=== PATIENT | female | born 1980 | race Two or more races ===

== ENCOUNTER 2024-10-02 10:06 | Outpatient (AMB) | payer OTHER, SELFPAY ==
--- NOTE | 2024-10-02 10:11 | MHC.PC.OV ---
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 Notably, she experienced a severe episode of chest pain and elevated blood pressure (216/131) in early August, leading to an ER visit where she was diagnosed with a mild form of pancreatitis based on blood work with elevated lipase. The episode was not accompanied by pain during or after meals or existence of gallstones. Since this major episode, she notes her blood pressure fluctuations correlate with activity and diet, particularly after consuming specific foods like fast food. The patient denies current chest pain, headaches, dizziness, or vision changes and reports sporadic feelings of heart racing without significant discomfort. Current lifestyle adjustments include home blood pressure monitoring and attention to dietary triggers. Social History - Nutrition: Reports preparing smoothies with fruits and vegetables, acknowledges past consumption of fast food like [employer] - Substance Use: Denies alcohol use related to discussed pancreatitis [facility] Medical History (Updated 10/02/24 @ 12:24 by Tatyana Uribe PA-C) Mammogram declined (~10/02/24) History of pancreatitis Cervical cancer screening Elevated blood pressure reading Sinus tachycardia Serum lipase elevation Establishing care with new doctor, encounter for Family History Father No problems noted. Mother No problems noted. Social History Housing: Apartment Alcohol intake: current Alcohol intake frequency: does not drink Patient Tobacco Use Status: Current everyday Tobacco user Tobacco use type: Cigarette Cigarettes Per Day: 10 service: No Current occupational status: employed Cognitive needs: No Hearing needs: No Vision needs: No Questionnaire PHQ-9 Over the last 2 weeks, how often have you been bothered by any of the following problems? 1. Little interest or pleasure in doing things: not at all 2. Feeling down, depressed, or hopeless: not at all 3. Trouble falling or staying asleep, or sleeping too much: not at all 4. Feeling tired or having little energy: not at all 5. Poor appetite or overeating: not at all 6. Feeling bad about yourself - or that you are a failure or have let yourself or your family down: not at all 7. Trouble concentrating on things, such as reading the newspaper or watching television: not at all 8. Moving or speaking so slowly that other people could have noticed. Or the opposite - being so fidgety or restless that you have been moving around a lot more than usual: not at all 9. Thoughts that you would be better off or of hurting yourself in some way: not at all Total score: 0 Depression Screening Interpretation: Negative Depression Screening Done: Yes 81463 - PHQ-9 Billing: Yes Source: Developed by Drs. Samy Rashid, Guadalupe Rubalcava, Charlie Moses and colleagues, with an educational mamta from [employer]. Thrive Questionnaire Date Thrive assessed: 10/02/24 I am a: Patient What is your living situation today?: I have a steady place to live Within the past 12 months, did the food you bought not last and you didn't have the money to get more?: Never true Within the past 12 months, did you worry whether your food would run out before you got money to buy more?: Never true Do you have trouble paying for medicines?: No Do you have trouble getting transportation to medical appointments?: No Do you have trouble paying your heating and electricity bill?: No Do you have trouble taking care of your child, family member or friend?: No Do you have trouble with day-to-day activities such as bathing, preparing meals, shopping, managing finances, etc.?: No Are you currently unemployed and looking for a job?: No Are you interested in more education?: No Please select the resources that you would like help with: None THRIVE Score: 0 AUDIT C Alcohol Use Questionnaire (AUDIT-C) 1. How often do you have a drink containing alcohol?: Never 3. How often do you have six or more drinks on one occasion?: Never Total Score: 0 Score Reviewed/Action Taken: No DAYANNA-7 AMB Questionnaire DAYANNA-7 Date DAYANNA - 7 assessed: 10/02/24 Feeling nervous, anxious, or on edge: 0 = Not at all Not being able to stop or control worryin = Not at all Worrying too much about different things: 0 = Not at all Trouble relaxin = Not at all Being so restless that it is hard to sit still: 0 = Not at all Becoming easily annoyed or irritable: 0 = Not at all Feeling afraid as if something awful might happen: 0 = Not at all Total DAYANNA-7 score (0-4 normal; 5-9 mild; 10-14 moderate; 15-21 severe): 0 Source: Developed by Drs. Samy Rashid, Guadalupe Rubalcava, Charlie Moses and colleagues, with an educational mamta from [employer]. DAYANNA-7 Assessment Billing DAYANNA-7 Assessment Tool: DAYANNA-7 Assessment 90206 Review of Systems Const Details: - Cardiovascular: Reports intermittent episodes of elevated blood pressure; Denies ongoing chest pain - Gastrointestinal: Denies nausea, vomiting, diarrhea; Reports transient abdominal discomfort likely related to dietary intake - Neurological: Denies headache, dizziness, or vision changes - General: Reports feeling off and heart racing intermittently Physical exam (Primary Care) Vital Signs: Last Vital Signs Temp 98.2 F 10/02/24 10:34 Pulse 70 10/02/24 10:34 Resp 14 10/02/24 10:34 BP 148/80 H 10/02/24 10:34 Pulse Ox 97 10/02/24 10:34 Oxygen Delivery Method Room Air 10/02/24 10:34 Care Plan Goal for BP management: <130/90 monitor her blood pressure for the next 2-4 weeks and bring blood pressure diary BMI result Body Mass Index 25.2 BMI Assessment/Plan discussion: High BMI High, discussed plan: lifestyle, weight reduction, dietary, physical activity and alcohol moderation Tobacco/Smoking Status: Tobacco use Status Tobacco use date assessed 10/02/24 10/02/24 10:14 Patient Tobacco Use Status Current everyday Tobacco 10/02/24 10:40 Tobacco use type Cigarette 10/02/24 10:40 PHQ-9: PHQ-9 Score PHQ-9: Total score 0 10/02/24 10:40 Depression Screening Interpretation: Negative Thrive Assessment: Date of Thrive Assessment Date Thrive assessed 10/02/24 10/02/24 10:14 Const Other: Appearance: Alert. Oriented X3. No acute distress. Head: Normal external exam. Normocephalic. Atraumatic. Eyes: Pupils are equal, round, and reactive to light. Extraocular movements intact. Conjunctiva and sclera normal. Eyelids normal. Ears: External auditory canal normal. Tympanic membranes normal. Throat: Pharynx normal. Uvula midline. Moist mucous membranes. Neck: Normal inspection. Neck supple. Full range of motion. No adenopathy. Thyroid Normal. No meningeal signs. No neck mass noted. Cardiovascular: Normal heart rate and rhythm. Heart sound normal. No murmurs noted. Pulses normal throughout. Respiratory: No respiratory distress. Painless inspiration. Breath sounds normal. No wheezes/rales/rhonchi noted. Chest nontender. No accessory muscle usage noted or decreased air movement noted. Abdomen: Soft and nontender. Back: Full range of motion noted. Skin: Skin warm and dry. Normal skin color. Normal skin turgor. No rashes/lesions/lacerations noted. Extremities: No lower extremity edema. Extremities exhibit normal range of motion. Extremities nontender. Neuro: Oriented X 3. No motor deficit. No sensory deficit. Reflexes normal. Results Reviewed Results Reviewed: ED At [place] on 08/30/24 - Labs: Lipase 117, White blood cells 11,000, with no anemia reported - Imaging: Negative CT and ultrasound for gallbladder issues; No abnormalities reported except noted elevated lipase Coding Level of Care Code New Pt Level 4 (93480) Complex EM visit Add On G2211 Diagnoses Establishing care with new doctor, encounter for Z76.89 Serum lipase elevation R74.8 Sinus tachycardia R00.0 History of pancreatitis Z87.19 Elevated blood pressure reading R03.0 Cervical cancer screening Z12.4 Additional Codes PHQ-9 - 89818 - PHQ-9 Billing: Yes ([id number]) DAYANNA-7 Assessment Billing - DAYANNA-7 Assessment Tool: DAYANNA-7 Assessment 93987 ([id number]) Assessment & Plan Assessment & Plan (1) Establishing care with new doctor, encounter for: Code(s): Z76.89 - Persons encountering health services in other specified circumstances Category: Medical (2) Serum lipase elevation: Code(s): R74.8 - Abnormal levels of other serum enzymes Category: Medical Plan: A historical episode that will be monitored through subsequent lipase level revaluation and careful attention to diet, with follow-up if symptoms recur or further dietary correlation is noted. (3) Sinus tachycardia: Code(s): R00.0 - Tachycardia, unspecified Category: Medical Plan: While current symptoms are absent, preparatory cardiac evaluation via stress test and echocardiogram is scheduled to exclude cardiac causes. Follow-up at the earliest available opportunity for test results will guide further management. (4) History of pancreatitis: Code(s): Z87.19 - Personal history of other diseases of the digestive system Category: Medical Plan: A historical episode that will be monitored through subsequent lipase level revaluation and careful attention to diet, with follow-up if symptoms recur or further dietary correlation is noted. (5) Elevated blood pressure reading: Code(s): R03.0 - Elevated blood-pressure reading, without diagnosis of hypertension Category: Medical Plan: The management includes home blood pressure monitoring and lifestyle adjustments, particularly around dietary intake and identifying triggers. The plan is to follow up in the office within two weeks, using logged data to guide future treatment decisions. (6) Cervical cancer screening: Code(s): Z12.4 - Encounter for screening for malignant neoplasm of cervix Category: Medical Plan: Will refer patient to qualified craft worker electrician for cervical cancer screening. Plan Plan Patient was informed and verbally consented to the use of an ambient scribe for clinic note documentation during this visit. 1. Essential Hypertension The management includes home blood pressure monitoring and lifestyle adjustments, particularly around dietary intake and identifying triggers. The plan is to follow up in the office within two weeks, using logged data to guide future treatment decisions. 2. Intermittent Chest Pain While current symptoms are absent, preparatory cardiac evaluation via stress test and echocardiogram is scheduled to exclude cardiac causes. Follow-up at the earliest available opportunity for test results will guide further management. 3. Episode Of Pancreatitis A historical episode that will be monitored through subsequent lipase level revaluation and careful attention to diet, with follow-up if symptoms recur or further dietary correlation is noted. Discussion Note During the visit, we discussed the likely diagnosis of essential hypertension given the elevated blood pressure episodes. After reviewing her symptoms and medical history, I recommended home monitoring of her blood pressure and instructed the patient on proper technique. We discussed the importance of recording the blood pressure daily in the morning before consuming any caffeine and evaluating these numbers over time to determine the need for medication management. I counseled her on potential trigger foods contributing to her symptoms and identified options for dietary modifications. Additionally, I have ordered further cardiac evaluation through stress testing and an echocardiogram to assess the potential cardiac origins of her past chest pain episodes to rule out specific conditions such as valve issues. Follow-up is planned within two weeks to reevaluate her blood pressure readings and review any test results that have been obtained by that time. Should any acute symptoms arise, especially chest pain, I instructed her to seek immediate medical attention. Additionally, we touched on the need for routine screenings she had not yet received, such as mammograms and other women?s health examinations, with referrals as needed. Orders: Orders CA echo transthoracic complete Today R00.0 - Tachycardia, unspecified, R03.0 - Elevated blood-pressure reading, without diagnosis of hypertension, R07.9 - Chest pain, unspecified Hemoglobin A1c Today Z00.00 - Encounter for general adult medical examination without abnormal findings TSH reflex Free T4 Today Z00.00 - Encounter for general adult medical examination without abnormal findings Vitamin B12 and Folate Today Z00.00 - Encounter for general adult medical examination without abnormal findings Vitamin D 25-OH Total Today Z00.00 - Encounter for general adult medical examination without abnormal findings Magnesium Today Z00.00 - Encounter for general adult medical examination without abnormal findings Liver Panel Today Z00.00 - Encounter for general adult medical examination without abnormal findings MM screening mammo BI Today Z12.31 - Encounter for screening mammogram for malignant neoplasm of breast CA stress test Today R00.0 - Tachycardia, unspecified, R03.0 - Elevated blood-pressure reading, without diagnosis of hypertension C Reactive Protein Today Z00.00 - Encounter for general adult medical examination without abnormal findings Complete Blood Count Auto Diff Today Z00.00 - Encounter for general adult medical examination without abnormal findings Comprehensive [place]. Panel Fast Today Z00.00 - Encounter for general adult medical examination without abnormal findings Erythrocyte Sedimentation Rate Today Z00.00 - Encounter for general adult medical examination without abnormal findings Lipid Panel Today Z00.00 - Encounter for general adult medical examination without abnormal findings Lipase Today R74.8 - Abnormal levels of other serum enzymes Referrals [facility] Referral Z12.4 - Encounter for screening for malignant neoplasm of cervix Patient Instructions: - Monitor blood pressure daily at home, particularly before caffeine intake. - Record at least 3-4 readings per week for review. - Follow up in two weeks for assessment of blood pressure logs. - Await scheduling of stress test and echocardiogram; call if not contacted in a month. - Avoid trigger foods that might contribute to elevated blood pressure. - Seek immediate care if recurrent or severe symptoms such as chest pain occur. - Attend recommended screenings and follow through with [facility] referrals. - Go fasting before blood work scheduled, avoiding eating 10 hours prior. - Contact us if any new or concerning symptoms develop or for clarification on instructions.
[2024-10-02 10:34] VITALS: BP 148/80; PULSE 70; RESP 14; TEMP 36.8; O2SAT 97; BMI 25.2
== END 2024-10-02 11:24 | disposition home or self-care (01) ==
LOC: HO.HMCSH 10:06
PROVIDERS: Visit Provider Physician Assistant Medical
DX: Z76.89 Persons encountering health services in other specified circumstances (principal); R74.8 Abnormal levels of other serum enzymes; R00.0 Tachycardia, unspecified; Z87.19 Personal history of other diseases of the digestive system; R03.0 Elevated blood-pressure reading, without diagnosis of hypertension; Z12.4 Encounter for screening for malignant neoplasm of cervix

== ENCOUNTER → 2024-10-02 10:06 | Outpatient (BNVA) | payer OTHER, SELFPAY | PROVIDERS: Visit Provider Physician Assistant Medical | DX: Z76.89 Persons encountering health services in other specified circumstances (principal); R74.8 Abnormal levels of other serum enzymes; R00.0 Tachycardia, unspecified; R03.0 Elevated blood-pressure reading, without diagnosis of hypertension; Z87.19 Personal history of other diseases of the digestive system | CPT/HCPCS: 96127; 99202 ==

== ENCOUNTER 2024-10-03 07:05 | Outpatient (REF) | payer OTHER, SELFPAY ==
[2024-10-03 07:21] LABS: MANUAL DIFF FLAG NO
[2024-10-03 08:42] LABS: Basophils Absolute Auto 0.1 X10*3/uL (0.0-0.2); Basophils Percent Auto 0.7 % (0-2); Eosinophils Absolute Auto 0.2 X10*3/uL (0.0-0.4); Eosinophils Percent Auto 0.9 % (0-4); Hematocrit 41.3 % (37.0-47.0); Hemoglobin 14.1 g/dl (12.0-16.0); Imm Gran Abs Auto 0.07 X10*3/uL (0.00-0.03); Imm Gran Pct Auto 0.4 % (0.0-0.4); Lymphocytes Absolute Auto 2.5 X10*3/uL (1.2-4.9); Lymphocytes Percent Auto 15.2 % (20-40); Mean Corpuscular HGB Conc 34.1 g/dl (31.0-35.0); Mean Corpuscular Hemoglobin 28.1 pg (27.0-33.0); Mean Corpuscular Volume 82.4 fL (80.0-98.0); Mean Platelet Volume 10.1 fL (9.4-12.3); Monocytes Absolute Auto 0.9 X10*3/uL (0.1-1.2); Monocytes Percent Auto 5.5 % (2-11); Neutrophils Absolute Auto 12.6 x10*3/uL (2.0-8.3); Neutrophils Percent Auto 77.3 % (45-73); Platelet Count 393 X10*3/uL (160-400); Red Blood Count 5.01 X10*6/uL (4.20-5.50); Red Cell Distribution Width 14.4 % (11.0-16.0); White Blood Count 16.4 X10*3/uL (4.8-10.8)
[2024-10-03 08:54] LABS: Estimated Average Glucose 111 mg/dL; Hemoglobin A1C 130.5774 umol/L; Hemoglobin A1c % 5.5 % (<6.0); Total Hemoglobin (HGBA1C) 3528.9468 umol/L
[2024-10-03 09:20] LABS: Alanine Aminotransferase 29 U/L (0-31); Albumin Level 4.4 g/dL (3.5-5.0); Alkaline Phosphatase 82 U/L (39-117); Anion Gap 13 (12-20); Aspartate Amino Transferase 22 U/L (5-31); Bilirubin Direct 0.3 mg/dL (0.0-0.5); Bilirubin Total 0.9 mg/dL (0.0-1.0); Blood Urea Nitrogen 8 mg/dL (9-16); C Reactive Protein 0.31 mg/dL (< or = 0.50); Calcium 9.1 mg/dL (8.4-10.2); Carbon Dioxide 26 mmol/L (22-29); Chloride 106 mmol/L (96-108); Cholesterol 169 mg/dL (<200); Estimated Glomerular Filt Rate > 60; Glucose Fasting 101 mg/dL (60-99); Lipase 17 U/L (8-78); Magnesium 1.9 mg/dL (1.6-2.6); Potassium 4.1 mmol/L (3.3-5.1); Sodium 141 mmol/L (135-145); Triglycerides 79 mg/dL (<150)
[2024-10-03 09:31] LABS: Erythrocyte Sedimentation Rate 2 MM/HR (0-20)
[2024-10-03 09:38] LABS: TSH reflex Free T4 1.22 uIU/mL (0.32-4.0); Vitamin D 25-OH Total 31.8 ng/mL (>30)
[2024-10-03 09:47] LABS: Folate 10.6 ng/mL (> or = 4.0); Vitamin B12 415 pg/mL (200-900)
[2024-10-03 10:03] LABS: HDL Cholesterol 45 mg/dL (>40); LDL Cholesterol Calculated 109 mg/dL (<100)
== END 2024-10-03 07:06 | disposition home or self-care (01) ==
LOC: HO.LAB 07:05
PROVIDERS: PCP Physician Assistant Medical; Visit Provider Physician Assistant Medical
DX: Z00.00 Encounter for general adult medical examination without abnormal findings (principal); R74.8 Abnormal levels of other serum enzymes
CPT/HCPCS: 36415; 80053; 80061; 80076; 82248; 82306; 82607; 82746; 83036; 83690; 83735; 84443; 85025; 85652; 86140

== ENCOUNTER 2024-10-20 11:49 | Outpatient (REF) | payer OTHER, SELFPAY ==
--- OUTSIDE RECORDS SUMMARY | 2024-10-20 11:51 | XMS_ITS | Clinical Summary ---
Author Organization [facility] Address [address] [place] [address] Phone Care Team Providers Care Time Checker Name Role Phone Nichole Petit MD Primary Care Provider [phone] Allergies No known active allergies Medications cyclobenzaprine (FLEXERIL) 10 mg tablet Take 1 tablet (10 mg total) by mouth 3 (three) times a day if needed for muscle spasms for up to 10 days. 15 tablet 08/31/2024 Active Encounters Date Type Department Care Team Description 08/30/2024 4:53 PM EDT - 08/31/2024 1:58 AM EDT Emergency [facility] Emergency [address] [place] [address] Velasquez Rosario, Isis Santacruz MD Chest pain, unspecified type (Primary Dx); Acute chest pain Discharge Disposition: Home or Self Care from Last 3 Months Social History Tobacco Use Types Packs/Day Years Used Date Smoking Tobacco: Never Assessed Comments Unknown Sex and Gender Information Value Date Recorded Sex Assigned at Female 08/30/2024 5:52 PM EDT Legal Sex Female 9:06 AM EST Gender Identity Female 08/30/2024 5:52 PM EDT Sexual Orientation Straight 08/30/2024 5: 52 PM EDT Obstetrics History Last Filed Vital Signs Vital Sign Reading Time Taken Comments Blood Pressure 133/87 08/31/2024 12:50 AM EDT Pulse 66 08/31/2024 12:50 AM EDT Temperature 36.8 ??C (98.2 ??F) 08/31/2024 12:50 AM E DT Respiratory Rate 15 08/31/2024 12:02 AM EDT Oxygen Saturation 98% 08/31/2024 12:50 AM EDT Inhaled Oxygen Concentration - - Weight 72.7 kg (160 lb 3.2 oz) 08/30/2024 4:39 P M EDT Height 170.2 cm (5' 7 ) 08/30/2024 4:39 PM EDT Body Mass Index 25.09 08/30/2024 4:39 PM EDT Plan of Treatment Health Maintenance Due Date Last Done Comments Breast Cancer Screening 1981 DTaP,Tdap,and Td Vaccines (1 - Tdap) 2000 Hepatitis B Vaccines (1 of 3 - 19+ 3-dose series) 2000 Cervical Cancer Screening: P ap Smear 2002 COVID-19 Vaccine ( - 2023-2 5 season) 2024 Depression Screening 08/31/2024 HIV Screening 08/31/2024 Hepatitis C Screening 08/31/2024 Social Influencers of Health Screening 08/31/2024 Influenza Vaccine (Season Ended) 2025 HIB Vaccines Aged Out No longer eligi ble based on patient's age to complete this topic HPV Vaccines Aged Out No longer eligi ble based on patient's age to complete this topic Hepatitis A Vaccines Aged Out No long er eligible based on patient's age to complete this topic IPV Vaccines Aged Out No longer eligi ble based on patient's age to complete this topic MMR Vaccines Aged Out No longer eligi ble based on patient's age to complete this topic Meningococcal ACWY Vaccine Aged Out N o longer eligible based on patient's age to complete this topic Meningococcal B Vaccine Aged Out No l onger eligible based on patient's age to complete this topic Pneumococcal Vaccine: Pediat rics (0 to 5 Years) and At-Risk Patients (6 to 64 Years) Aged Out No longer eligible b ased on patient's age to complete this topic RSV Immunization Patients Un sixto 20 months Aged Out No longer eligible b ased on patient's age to complete this topic Varicella Vaccines Aged Out No longer eligible based on patient's age to complete this topic Procedures Procedure Name Priority Date/Time Associated Diagnosis Comments ECG ANNOTATED 08/31/2024 US ABDOMEN LIMITED STAT 08/30/2024 11 :[address] ANGIO CHEST WO AND/OR W CONTRAST STAT 08/30/2024 10:08 PM EDT Chest pain, unspecified type CT ABDOMEN PELVIS W CONTRAST STAT 08/30/2024 10:08 PM EDT XR CHEST 2 VIEWS STAT 08/30/2024 6:33 PM EDT TROPONIN I HIGH SENSITIVITY STAT 08/30/2024 6:22 PM EDT ECG 12-LEAD STAT 08/30/2024 6:19 PM EDT CBC WITH AUTO DIFFERENTIAL STAT 08/30/2024 5:11 PM EDT B-TYPE NATRIURETIC PEPTIDE STAT 08/30/2024 5:11 PM EDT MAGNESIUM STAT 08/30/2024 5:11 PM EDT LIPASE STAT 08/30/2024 5:11 PM EDT COMPREHENSIVE METABOLIC PANEL STAT 08/30/2024 5:11 PM EDT CBC AND DIFFERENTIAL STAT 08/30/2024 5:11 PM EDT TROPONIN I HIGH SENSITIVITY STAT 08/30/2024 5:11 PM EDT ECG 12-LEAD STAT 08/30/2024 4:37 PM EDT from Last 3 Months Results * ECG-Annotated (08/31/2024) us Provider Onbase MD ECG ORDERABLES Final Result * US Abdomen Limited (08/30/2024 11:44 PM EDT) Anatomical Region Laterality Modality Body Ultrasound 08/31/2024 12:2 8 AM EDT Impressions 08/31/2024 12:28 AM EDT 1. Normal limited abdominal ultrasound. This document has been electronically signed by: Dora Post MD on 08/31/2024 00:28:32 Narrative 08/31/2024 12:28 AM EDT INDICATION: ruq pain US abdomen limited Comparison: CT - CT ABD PEL W CONTRAST - 08/30/24 21:53 EDT Findings: The pancreas was suboptimally visualized. The inferior vena cava is normal caliber. The liver is normal in size and echotexture. There is no intrahepatic bile duct dilatation. The common duct is 4 mm in diameter. The gallbladder is normal. Gallbladder wall measures 2 mm. There is no sonographic Garcia sign. The main portal vein is antegrade. The right kidney is 10.4 cm in length. No ascites. Procedure Note Dora Post MD - 08/31/2024 INDICATION: ruq pain US abdomen limited Comparison: CT - CT ABD PEL W CONTRAST - 08/30/24 21:53 EDT Findings: The pancreas was suboptimally visualized. The inferior vena cava is normal caliber. The liver is normal in size and echotexture. There is no intrahepatic bile duct dilatation. The common duct is 4 mm in diameter. The gallbladder is normal. Gallbladder wall measures 2 mm. There is no sonographic Garcia sign. The main portal vein is antegrade. The right kidney is 10.4 cm in length. No ascites. IMPRESSION: 1. Normal limited abdominal ultrasound. This document has been electronically signed by: Dora Post MD on 08/31/2024 00:28:32 us Velasquez Rosario DO IMG US PROCEDURES Final Result * CT Abdomen Pelvis w Contrast (08/30/2024 10:08 PM EDT) Anatomical Region Laterality Modality Body Computed Tomogra phy 08/30/2024 11:1 4 PM EDT Impressions 08/30/2024 11:14 PM EDT No acute findings. This document has been electronically signed by: Dora Post MD on 08/30/2024 23:14:15 Narrative 08/30/2024 11:14 PM EDT INDICATION: right upper pain CT abdomen and pelvis with contrast Comparison: None Findings: The lung bases are clear. Unremarkable gallbladder. No biliary ductal dilatation. The liver, spleen, pancreas, adrenal glands and kidneys appear unremarkable. No ureteral stones and no hydronephrosis hydroureter. No bowel obstruction, pneumoperitoneum, or pneumatosis. Normal appendix. No free fluid. Uterus within normal limits with central hypodensity. Bilateral ovarian small cyst physiologic. No free fluid. Atherosclerotic vascular disease with no aneurysm of the abdominal aorta. No acute fracture. Procedure Note Dora Post MD - 08/30/2024 INDICATION: right upper pain CT abdomen and pelvis with contrast Comparison: None Findings: The lung bases are clear. Unremarkable gallbladder. No biliary ductal dilatation. The liver, spleen, pancreas, adrenal glands and kidneys appear unremarkable. No ureteral stones and no hydronephrosis hydroureter. No bowel obstruction, pneumoperitoneum, or pneumatosis. Normal appendix. No free fluid. Uterus within normal limits with central hypodensity. Bilateral ovarian small cyst physiologic. No free fluid. Atherosclerotic vascular disease with no aneurysm of the abdominalaorta. No acute fracture. IMPRESSION: No acute findings. This document has been electronically signed by: Dora Post MD on 08/30/2024 23:14:15 Velasquez Rosario DO IMG CT PROCEDURES Final Result * CT Angio Chest wo and/or w Contrast (08/30/2024 10:08 PM EDT) Anatomical Region Laterality Modality Body Computed Tomogra phy 08/30/2024 11:0 1 PM EDT Impressions 08/30/2024 11:01 PM EDT 1. No pulmonary embolus. This document has been electronically signed by: Dora Post MD on 08/30/2024 23:01:43 Narrative 08/30/2024 11:01 PM EDT INDICATION: PE suspected, high prob CT angiography chest with contrast. 3D Postprocessing. Comparison: None Findings: The heart size is normal. RV/LV ratio is normal. The thoracic aorta is normal caliber. No acute pulmonary embolus. The visualized thyroid and mediastinum are unremarkable. No consolidation or effusion. No pneumothorax. The visualized upper abdomen demonstrates no acute process. No acute fractures. Procedure Note Dora Post MD - 08/30/2024 INDICATION: PE suspected, high prob CT angiography chest with contrast. 3D Postprocessing. Comparison: None Findings: The heart size is normal. RV/LV ratio is normal. The thoracic aorta is normal caliber. No acute pulmonary embolus. The visualized thyroid and mediastinum are unremarkable. No consolidation or effusion. No pneumothorax. The visualized upper abdomen demonstrates no acute process. No acute fractures. IMPRESSION: 1. No pulmonary embolus. This document has been electronically signed by: Dora Post MD on 08/30/2024 23:01:43 Velasquez Rosario DO IMG CT PROCEDURES Final Result * XR Chest 2 Views (08/30/2024 6:33 PM EDT) Anatomical Region Laterality Modality Body Radiographic Jeni ging 08/31/2024 8:07 AM EDT Impressions 08/31/2024 8:08 AM EDT No acute findings. -------- FINAL REPORT -------- Dictated By: Devan Estrada Dictated Date: 08/31/2024 08:07 ET Assigned Physician: Devan Estrada Reviewed and Electronically Signed By: Devan Estrada Signed Date: 08/31/2024 08:08 ET Workstation ID: [id number] Transcribed By: Self Edit Transcribed Date: 08/31/2024 08:07 ET Narrative 08/31/2024 8:08 AM EDT PROCEDURE: PA and lateral radiographs of the chest. HISTORY: chest pain. COMPARISON: None. FINDINGS: Lungs, pleural spaces, pulmonary vasculature, and cardiomediastinal contours are normal. ??Mild degenerative changes of the spine and right AC joint. Procedure Note Devan Estrada MD - 08/31/2024 PROCEDURE: PA and lateral radiographs of the chest. HISTORY: chest pain. COMPARISON: None. FINDINGS: Lungs, pleural spaces, pulmonary vasculature, and cardiomediastinalcontours are normal. Mild degenerative changes of the spine and right ACjoint. IMPRESSION: No acute findings. -------- FINAL REPORT -------- Dictated By: Devan Estrada Dictated Date: 08/31/2024 08:07 ET Assigned Physician: Devan Estrada Reviewed and Electronically Signed By: Devan Estrada Signed Date: 08/31/2024 08:08 ET Workstation ID: [id number] Transcribed By: Self Edit Transcribed Date: 08/31/2024 08:07 ET us Harley Trujillo MD IMG XR PROCEDURES Final Result * Troponin I high sensitivity (08/30/2024 6:22 PM EDT) Only the most recent of2 resultswithin the time period is included. [facility] High Sensitivity Troponin I 8 <=54 ng/L LAB CHEMISTRY METHOD 08/30/2024 7:31 PM EDT [facility] Blood Venous blood specimen / Unknown Venipuncture / Unknown 08/30/2024 6:22 PM EDT 08/30/2024 6:34 PM EDT Narrative [facility] - 08/30/2024 7:31 PM EDT High levels of biotin in samples may falsely decrease hsTroponin values. ??Use caution when interpreting hsTroponin results in patients taking biotin who exhibit renal impairment (eGFR <60) or in patients taking more than 20 mg/day of biotin. us Harley Trujillo MD LAB BLOOD ORDERABLES Final Resu lt [facility] [address] [place] [address], * ECG 12 lead (08/30/2024 6:19 PM EDT) Only the most recent of2 resultswithin the time period is included. [facility] Ventricular Rate ECG 65 BPM GEMUSE Atrial Rate 65 BPM GEMUSE P-R Interval 124 ms GEMUSE QRS Duration 78 ms GEMUSE Q-T Interval 440 ms GEMUSE QTc 457 ms GEMUSE P Wave [place] 71 degrees GEMUSE R [place] 43 degrees GEMUSE T [place] 43 degrees GEMUSE ECG Interpretation Normal sinus rhythm Normal ECG When compared with ECG of 30-AUG-2024 16:37, Vent. rate has decreased BY ??[address] no longer depressed in Inferior leads Confirmed by SHY SNYDER ([id number]) on 08/30/2024 8:27:12 PM GEMUSE 08/30/2024 6:19 PM EDT 08/30/2024 8:27 PM EDT us Harley Trujillo MD ECG ORDERABLES Final Result GEMUSE * (ABNORMAL) CBC auto differential (08/30/2024 5:11 PM EDT) WBC 11.9(H) 4.8 - 10.8 K/mcL LAB HEMETOLOGY METHOD 08/30/2024 5:30 PM EDT [facility] RBC 5.10(H) 3.80 - 4.80 M/mcL LAB HEMETOLOGY METHOD 08/30/2024 5:30 PM EDT [facility] Hemoglobin 14.0 11.5 - 16.0 g/dL LAB HEMETOLOGY METHOD 08/30/2024 5:30 PM EDT [facility] Hematocrit 43.2 35.0 - 47.0 % LAB HEMETOLOGY METHOD 08/30/2024 5:30 PM EDT [facility] MCV 84.2 79.0 - 98.0 FL LAB HEMETOLOGY METHOD 08/30/2024 5:30 PM EDT [facility] MCH 27.3 27.0 - 32.0 pcg LAB HEMETOLOGY METHOD 08/30/2024 5:30 PM EDT [facility] MCHC 32.4 32.0 - 37.0 g/dL LAB HEMETOLOGY METHOD 08/30/2024 5:30 PM EDT [facility] RDW 14.1 11.0 - 15.0 % LAB HEMETOLOGY METHOD 08/30/2024 5:30 PM EDT [facility] Platelets 396 130 - 400 K/mcL LAB HEMETOLOGY METHOD 08/30/2024 5:30 PM EDT [facility] MPV 9.8 7.0 - 11.0 FL LAB HEMETOLOGY METHOD 08/30/2024 5:30 PM EDT [facility] NRBC 0.0 <1.0 % LAB HEMETOLOGY METHOD 08/30/2024 5:30 PM EDT [facility] NRBC Absolute 0.00 <0.10 K/mcL LAB [facility] Neutrophils Relative 53.9 % LAB HEMETOLOGY METHOD 08/30/2024 5:30 PM EDT [facility] Lymphocytes Relative 35.3 % LAB [facility]OLOGY [facility] Monocytes Relative 8.7 % LAB HEMETOLOGY METHOD 08/30[facility]2024 5:[facility] Eosinophils Relative 1.0 % LAB HEMETOLOGY METHOD 08/30[facility]2024 5:[facility] Basophils Relative 0.8 % LAB HEMETOLOGY METHOD 08/30/2024 5:30 PM EDT [facility] Immature Granulocytes Relative 0.3 % LAB HEMETOLOGY METHOD 08/30/2024 5:30 PM EDT [facility] Neutrophils Absolute 6.42 1.50 - 7.00 K/mcL LAB HEMETOLOGY METHOD 08/30/2024 5:30 PM EDT [facility] Lymphocytes Absolute 4.20 1.00 - 5.00 K/mcL LAB HEMETOLOGY METHOD 08/30/2024 5:30 PM EDT [facility] Monocytes Absolute 1.03(H) 0.20 - 1.00 K/mcL LAB HEMETOLOGY METHOD 08/30/2024 5:30 PM EDT [facility] Eosinophils Absolute 0.12 0.00 - 0.50 K/mcL LAB HEMETOLOGY METHOD 08/30/2024 5:30 PM EDT [facility] Basophils Absolute 0.10 0.00 - 0.20 K/[facility] LAB HEMETOLOGY METHOD 08/30/2024 5:30 PM EDT [facility] Immature Granulocytes Absolute 0.03 0.00 - 0.03 K/mcL LAB HEMETOLOGY METHOD 08/30/2024 5:30 PM EDT [facility] Blood Venous blood specimen / Unknown Venipuncture / Unknown 08/30/2024 5:11 PM EDT 08/30/2024 5:24 PM EDT us Harley Trujillo MD LAB BLOOD ORDERABLES Final Resu lt Performing Organization Address City/[facility]/ZIP Co de Phone Number [facility] [address] [place] [address], [place] [phone] * B-type natriuretic peptide (08/30/2024 5:11 PM EDT) BNP 16 <=100 pcg/mL LAB CHEMISTRY METHOD 08/30/2024 5:56 PM EDT [facility] Blood Venous blood specimen / Unknown Venipuncture / Unknown 08/30/2024 5:11 PM EDT 08/30/2024 5:24 PM EDT us Harley Trujillo MD LAB BLOOD ORDERABLES Final Resu lt [facility] [address] [place] [address], [place] [phone] * Magnesium (08/30/2024 5:11 PM EDT) Magnesium 1.9 1.9 - 2.6 mg/dL LAB CHEMISTRY METHOD 08/30/2024 5:55 PM EDT [facility] Blood Venous blood specimen / Unknown Venipuncture / Unknown 08/30/2024 5:11 PM EDT 08/30/2024 5:24 PM EDT us Harley Trujillo MD LAB BLOOD ORDERABLES Final Resu lt [facility] [address] [place] [address], [place] [phone] * (ABNORMAL) Lipase (08/30/2024 5:11 PM EDT) Pathologist [facility] Lipase 118(H) 13 - 75 unit/L LAB CHEMISTRY METHOD 08/30/2024 5:55 PM EDT [facility] Blood Venous blood specimen / Unknown Venipuncture / Unknown 08/30/2024 5:11 PM EDT 08/30/2024 5:24 PM EDT us Harley Trujillo MD LAB BLOOD ORDERABLES Final Resu lt Performing Organization Address City/[facility]/ZIP Co de Phone Number [facility] [address] [place] [address], [place] [phone] * Comprehensive metabolic panel (08/30/2024 5:11 PM EDT) Sodium 137 133 - 145 mmol/L LAB CHEMISTRY METHOD 08/30/2024 6:42 PM EDT [facility] Potassium 3.6 3.5 - 5.5 mmol/L LAB CHEMISTRY METHOD 08/30/2024 6:42 PM EDT [facility] Chloride 103 96 - 110 mmol/L LAB CHEMISTRY METHOD 08/30/2024 6:42 PM EDT [facility] CO2 27 21 - 32 mmol/L LAB CHEMISTRY METHOD 08/30/2024 6:42 PM [facility] Anion Gap 7 3 - 11 LAB CHEMISTRY METHOD 08/30/2024 6:42 PM [facility] Glucose 94 70 - 100 mg/dL LAB CHEMISTRY METHOD 08/30/2024 6:42 PM [facility] BUN 9 5 - 25 mg/dL LAB CHEMISTRY METHOD 08/30/2024 6:42 PM [facility] Creatinine 0.61 0.50 - 1.10 mg/dL LAB CHEMISTRY METHOD 08/30/2024 6:42 PM [facility] eGFR 115 >=60 mL/min/1. 73m2 LAB CHEMISTRY METHOD 08/30/2024 6:42 PM [facility] Comment:Calculation based on the??Chronic Kidney Disease Epidemiology Collaboration (CKD-EPI) equation refit??without adjustment for race. BUN/Creatinine Ratio 14.8 LAB CHEMISTRY METHOD 08/30/2024 6:42 PM [facility] Calcium 9.7 8.5 - 10.5 mg/dL LAB CHEMISTRY METHOD 08/30/2024 6:42 PM [facility] AST (SGOT) 20 10 - 42 unit/L LAB CHEMISTRY METHOD 08/30/2024 6:42 PM [facility] ALT (SGPT) 28 10 - 60 unit/L LAB CHEMISTRY METHOD 08/30/2024 6:42 PM [facility] Alkaline Phosphatase 89 42 - 121 unit/L LAB CHEMISTRY METHOD 08/30/2024 6:42 PM [facility] Total Protein 7.5 6.0 - 8.0 g/dL LAB CHEMISTRY METHOD 08/30/2024 6:42 PM [facility] Albumin 4.1 3.2 - 5.0 g/dL LAB CHEMISTRY METHOD 08/30/2024 6:42 PM [facility] Total Bilirubin 0.8 0.0 - 1.4 mg/dL LAB CHEMISTRY METHOD 08/30/2024 6:42 PM EDT [facility] Blood Venous blood specimen / Unknown Venipuncture / Unknown 08/30/2024 5:11 PM EDT 08/30/2024 5:24 PM EDT us Harley Trujillo MD LAB BLOOD ORDERABLES Final Resu lt [facility] [address] [place] [address], from Last 3 Months Care Teams Time Checker Relationship Specialty Start Date End Date Nichole Petit MD [address] [place] [id number] PCP - General Internal Medicine 01/12/18
== END 2024-10-20 11:50 | disposition home or self-care (01) ==
LOC: HO.MAMMO 11:49
PROVIDERS: PCP Physician Assistant Medical; Visit Provider Physician Assistant Medical
DX: Z12.31 Encounter for screening mammogram for malignant neoplasm of breast (principal)
CPT/HCPCS: 77063; 77067

== ENCOUNTER → 2024-10-20 12:00 | Outpatient (BNV) | payer OTHER, SELFPAY | PROVIDERS: PCP Physician Assistant Medical; Visit Provider Internal Medicine | DX: Z12.31 Encounter for screening mammogram for malignant neoplasm of breast (principal) | CPT/HCPCS: 77063; 77067 ==

== ENCOUNTER 2024-11-08 10:10 | Outpatient (AMB) | payer OTHER, SELFPAY ==
[2024-11-08 10:23] VITALS: BP 176/89; PULSE 72; RESP 16; TEMP 36.9; O2SAT 99; BMI 23.4
--- NOTE | 2024-11-08 10:23 | MHC.PC.OV ---
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 Her blood pressure has been elevated, with a recent measurement of 167/106 mmHg. Despite dietary changes to reduce salt intake and maintaining a normal BMI, her blood pressure remains uncontrolled, potentially influenced by genetic factors of familial heart conditions including congestive heart failure and diabetes. A history of sinus tachycardia has been noted with symptomatic episodes when consuming cold beverages, but there is no report of associated chest pain. The patient has had elevated white blood cells in the past, likely secondary to pancreatitis, but current lab investigations show stable pancreatic and liver functions. A tentative plan for cardiac evaluation, including echocardiogram and stress testing, is established to further investigate potential underlying causes of her symptoms. The patient denies ongoing chest pain, but does report intermittent numbness in her hands/finger tips. Social History - Denies excessive salt intake; limits sodium in her diet to manage blood pressure. - Reports a genetic predisposition, with family history of congestive heart failure and diabetes. - Family history includes non-Hodgkin's lymphoma in two maternal relatives. [facility] Medical History (Updated 11/08/24 @ 12:53 by Tatyana Uribe PA-C) Family history of non-Hodgkin's lymphoma Intermittent chest pain Hypertension Mammogram declined (~10/02/24) History of pancreatitis Cervical cancer screening Elevated blood pressure reading Sinus tachycardia Serum lipase elevation Establishing care with new doctor, encounter for Family History Father Brain aneurysm Mother No problems noted. Maternal Uncle Non Hodgkin's lymphoma Maternal Aunt Non Hodgkin's lymphoma Social History Housing: Apartment Alcohol intake: current Alcohol intake frequency: does not drink Patient Tobacco Use Status: Current everyday Tobacco user Tobacco use type: Cigarette Cigarettes Per Day: 10 service: No Current occupational status: employed Cognitive needs: No Hearing needs: No Vision needs: No Questionnaire PHQ-9 Over the last 2 weeks, how often have you been bothered by any of the following problems? 1. Little interest or pleasure in doing things: not at all 2. Feeling down, depressed, or hopeless: not at all 3. Trouble falling or staying asleep, or sleeping too much: not at all 4. Feeling tired or having little energy: not at all 5. Poor appetite or overeating: not at all 6. Feeling bad about yourself - or that you are a failure or have let yourself or your family down: not at all 7. Trouble concentrating on things, such as reading the newspaper or watching television: not at all 8. Moving or speaking so slowly that other people could have noticed. Or the opposite - being so fidgety or restless that you have been moving around a lot more than usual: not at all 9. Thoughts that you would be better off or of hurting yourself in some way: not at all Total score: 0 Depression Screening Interpretation: Negative Depression Screening Done: Yes 26683 - PHQ-9 Billing: Yes Source: Developed by Drs. Samy Rashid, Guadalupe Rubalcava, Charlie Moses and colleagues, with an educational mamta from [employer]. Thrive Questionnaire Date Thrive assessed: 10/02/24 I am a: Patient What is your living situation today?: I have a steady place to live Within the past 12 months, did the food you bought not last and you didn't have the money to get more?: Never true Within the past 12 months, did you worry whether your food would run out before you got money to buy more?: Never true Do you have trouble paying for medicines?: No Do you have trouble getting transportation to medical appointments?: No Do you have trouble paying your heating and electricity bill?: No Do you have trouble taking care of your child, family member or friend?: No Do you have trouble with day-to-day activities such as bathing, preparing meals, shopping, managing finances, etc.?: No Are you currently unemployed and looking for a job?: No Are you interested in more education?: No Please select the resources that you would like help with: None THRIVE Score: 0 AUDIT C Alcohol Use Questionnaire (AUDIT-C) 1. How often do you have a drink containing alcohol?: Never 3. How often do you have six or more drinks on one occasion?: Never Total Score: 0 Score Reviewed/Action Taken: No DAYANNA-7 AMB Questionnaire DAYANNA-7 Date DAYANNA - 7 assessed: 10/02/24 Feeling nervous, anxious, or on edge: 0 = Not at all Not being able to stop or control worryin = Not at all Worrying too much about different things: 0 = Not at all Trouble relaxin = Not at all Being so restless that it is hard to sit still: 0 = Not at all Becoming easily annoyed or irritable: 0 = Not at all Feeling afraid as if something awful might happen: 0 = Not at all Total DAYANNA-7 score (0-4 normal; 5-9 mild; 10-14 moderate; 15-21 severe): 0 Source: Developed by Drs. Samy Rashid, Guadalupe Rubalcava, Charlie Moses and colleagues, with an educational mamta from [employer]. DAYANNA-7 Assessment Billing DAYANNA-7 Assessment Tool: DAYANNA-7 Assessment 10045 Review of Systems Const Details: - Cardiovascular: Reports episodes of sinus tachycardia; denies chest pain. - Neurological: Denies dizziness; reports intermittent numbness in hands, primarily at night. - Gastrointestinal: Denies recent pancreatitis-related symptoms; past history of pancreatitis. - General: Denies significant weight change; maintains normal BMI. Physical exam (Primary Care) Vital Signs: Last Vital Signs Temp 98.4 F 11/08/24 10:23 Pulse 72 11/08/24 10:23 Resp 16 11/08/24 10:23 BP 176/89 H 11/08/24 10:23 Pulse Ox 99 11/08/24 10:23 Oxygen Delivery Method Room Air 11/08/24 10:23 Care Plan Goal for BP management: <140/90 patient will be started on lisinopril 10 mg daily with reassessment in 1 month BMI result Body Mass Index 23.4 normal bmi Tobacco/Smoking Status: Tobacco use Status Tobacco use date assessed 11/08/24 11/08/24 10:27 Patient Tobacco Use Status Current everyday Tobacco 11/08/24 10:27 Tobacco use type Cigarette 11/08/24 10:27 PHQ-9: PHQ-9 Score PHQ-9: Total score 0 11/08/24 10:27 Depression Screening Interpretation: Negative Thrive Assessment: Date of Thrive Assessment Date Thrive assessed 10/02/24 11/08/24 10:27 Const Other: Appearance: Alert. Oriented X3. No acute distress. Head: Normal external exam. Normocephalic. Atraumatic. Eyes: Pupils are equal, round, and reactive to light. Extraocular movements intact. Conjunctiva and sclera normal. Eyelids normal. Throat: Pharynx normal. Uvula midline. Moist mucous membranes. Neck: Normal inspection. Neck supple. Full range of motion. Cardiovascular: Normal heart rate and rhythm. Heart sound normal. No murmurs noted. Pulses normal throughout. Blood pressure recorded at 167/106. Respiratory: No respiratory distress. Painless inspiration. Breath sounds normal. No wheezes/rales/rhonchi noted. Chest nontender. No accessory muscle usage noted or decreased air movement noted. Abdomen: Soft and nontender. Back: No costovertebral angle tenderness. Full range of motion noted. Skin: Skin warm and dry. Normal skin color. Normal skin turgor. No rashes/lesions/lacerations noted. Extremities: No lower extremity edema. Extremities exhibit normal range of motion. Extremities nontender. Reports of numbness in hands, especially at night, sometimes affecting the whole arm and fingertips. Neuro: Oriented X 3. No motor deficit. No sensory deficit. Reflexes normal. Results Reviewed Results Reviewed: - Labs: Previously elevated white blood cell count, current complete metabolic panel showing normal pancreatic enzymes (lipase), normal liver enzymes, slightly elevated glucose, and high cholesterol. - Tests: Future echocardiogram and stress test scheduled for November 30; planned 3-day Holter monitor. Coding Level of Care Code Est Pt Level 4 (97418) Complex EM visit Add On G2211 Diagnoses Establishing care with new doctor, encounter for Z76.89 Hypertension I10 Sinus tachycardia R00.0 History of pancreatitis Z87.19 Family history of non-Hodgkin's lymphoma Z80.7 Intermittent chest pain R07.9 Additional Codes DAYANNA-7 Assessment Billing - DAYANNA-7 Assessment Tool: DAYANNA-7 Assessment 60023 ([id number]) PHQ-9 - 43365 - PHQ-9 Billing: Yes ([id number]) Assessment & Plan Assessment & Plan (1) Establishing care with new doctor, encounter for: Code(s): Z76.89 - Persons encountering health services in other specified circumstances Category: Medical (2) Hypertension: Code(s): I10 - Essential (primary) hypertension Category: Medical Plan: Plan: Initiated lisinopril 10 mg daily to help manage high blood pressure, with instructions for home monitoring and dietary sodium reduction. Scheduled follow-up in one month. Condition is chronic and stable continue to monitor. (3) Sinus tachycardia: Code(s): R00.0 - Tachycardia, unspecified Category: Medical Plan: Plan: Ordered a 3-day Holter monitor; scheduled echocardiogram and stress test; cardiology referral if symptoms persist. Condition is intermittent not present at this time. Will reassess and continue to monitor (4) History of pancreatitis: Code(s): Z87.19 - Personal history of other diseases of the digestive system Category: Medical Plan: Plan: Lab results are normal for pancreatic function; future monitoring continues. Condition appears to have resolved. Will continue to reassess in monitor. (5) Family history of non-Hodgkin's lymphoma: Code(s): Z80.7 - Family history of other malignant neoplasms of lymphoid, hematopoietic and related tissues Category: Medical Plan: Plan: No immediate actions required; but acknowledged for future surveillance. (6) Intermittent chest pain: Code(s): R07.9 - Chest pain, unspecified Category: Medical Plan: Labs ordered including CBC, CMP, CK and troponin. Labs were at baseline which includes elevated white blood cell count all other labs which include troponin and CK are within normal limits. Patient denied any active chest pain at this time. Holter monitor ordered. Patient has cardiology appointment next month along with echocardiogram and stress test. Patient instructed to go to the emergency department if the chest pain returns or any other new symptoms or complaints. Patient understands agrees with this plan. Plan Plan Patient was informed and verbally consented to the use of an ambient scribe for clinic note documentation during this visit. 1. Essential Hypertension Plan: Initiated lisinopril 10 mg daily to help manage high blood pressure, with instructions for home monitoring and dietary sodium reduction. Scheduled follow-up in one month. 2. Intermittent Sinus Tachycardia Plan: Ordered a 3-day Holter monitor; scheduled echocardiogram and stress test; cardiology referral if symptoms persist. 3. History Of Pancreatitis Plan: Lab results are normal for pancreatic function; future monitoring continues. 4. Family History Of Non-Hodgkin's Lymphoma Plan: No immediate actions required; but acknowledged for future surveillance. I discussed with the patient the current management plan for her hypertension, which includes starting lisinopril and dietary modifications. We reviewed her blood pressure readings and agreed on the necessity of medication due to persistently elevated values. I explained the purpose of the 3-day Holter monitor to assess her episodic tachycardia and clarified the benefits of cardiac testing scheduled for November. We addressed the potential hereditary nature of her conditions and the importance of upcoming evaluations. I emphasized the significance of reporting any severe symptoms immediately, particularly chest pain or unrelenting headaches, due to potential heart risks. The patient consented to the plan, understanding the benefits and potential side effects of the proposed interventions. Orders: Orders Basic Metabolic Panel Today I10 - Essential (primary) hypertension, R07.9 - Chest pain, unspecified, Z87.19 - Personal history of other diseases of the digestive system Troponin-I High Sensitivity Today I10 - Essential (primary) hypertension, R07.9 - Chest pain, unspecified, Z87.19 - Personal history of other diseases of the digestive system ECG 3 day holter monitor Today R00.0 - Tachycardia, unspecified Complete Blood Count Auto Diff Today Z00.00 - Encounter for general adult medical examination without abnormal findings Creatine Kinase Total Today Z00.00 - Encounter for general adult medical examination without abnormal findings ECG 12 lead EKG Today I10 - Essential (primary) hypertension, R00.0 - Tachycardia, unspecified, R07.9 - Chest pain, unspecified, Z87.19 - Personal history of other diseases of the digestive system Referrals Cardiology Referral I10 - Essential (primary) hypertension, R00.0 - Tachycardia, unspecified, R07.9 - Chest pain, unspecified Medications: New lisinopril 10 mg PO DAILY 30 tabs 0RF Patient Instructions: - Take lisinopril 10 mg every day as prescribed. - Monitor your blood pressure regularly at home. - Limit your salt intake by avoiding high-sodium foods. - Attend scheduled cardiac tests on November 30. - If you experience chest pain, severe headache, or unusual symptoms, go to the ER immediately. - Follow up in one month to review blood pressure and medication effects. - Attend the Holter monitor appointment to evaluate heart activity.
--- OUTSIDE RECORDS SUMMARY | 2024-11-08 11:28 | XMS_ITS | Clinical Summary ---
Author Organization [facility] Address [address] [place] [address] Phone Care Team Providers Care Orthopedic Shoe Fitter Name Role Phone Nichole Petit MD Primary Care Provider [phone] Allergies No known active allergies Medications cyclobenzaprine (FLEXERIL) 10 mg tablet Take 1 tablet (10 mg total) by mouth 3 (three) times a day if needed for muscle spasms for up to 10 days. 15 tablet 08/31/2024 Active Encounters Date Type Department Care Team Description 08/30/2024 4:53 PM EDT - 08/31/2024 1:58 AM EDT Emergency [facility] Emergency [address] [place] [address] Velasquez Rosario, Isis Santacruz MD [...] Signed Date: 08/31/2024 08:08 ET Workstation ID: [id number] Transcribed By: Self Edit Transcribed Date: 08/31/2024 [...] Signed Date: 08/31/2024 08:08 ET Workstation ID: [id number] Transcribed By: Self Edit Transcribed Date: 08/31/2024 08:07 ET us Harley Trujillo MD IMG XR PROCEDURES Final Result * Troponin I high sensitivity (08/30/2024 6:22 PM EDT) Only the most recent of2 resultswithin the time period is included. [facility] High Sensitivity Troponin I 8 <=54 ng/L LAB CHEMISTRY METHOD 08/30/2024 7:31 PM EDT [facility] Blood Venous blood specimen / Unknown Venipuncture / Unknown 08/30/2024 6:22 PM EDT 08/30/2024 6:34 PM EDT Narrative [facility] - 08/30/2024 7:31 PM EDT High levels of biotin in samples may falsely decrease hsTroponin values. ??Use caution when interpreting hsTroponin results in patients taking biotin who exhibit renal impairment (eGFR <60) or in patients taking more than 20 mg/day of biotin. us Harley Trujillo MD LAB BLOOD ORDERABLES Final Resu lt [facility] [address] [place] [address], * ECG 12 lead (08/30/2024 6:19 PM EDT) Only the most recent of2 resultswithin the time period is included. [facility] Ventricular Rate ECG 65 BPM GEMUSE Atrial Rate 65 BPM GEMUSE P-R Interval 124 ms GEMUSE QRS Duration 78 ms GEMUSE Q-T Interval 440 ms GEMUSE QTc 457 ms GEMUSE P Wave [place] 71 degrees GEMUSE R [place] 43 degrees GEMUSE T [place] 43 degrees GEMUSE ECG Interpretation Normal sinus [...] LAB HEMETOLOGY METHOD 08/30/2024 5:30 PM EDT [facility] RBC 5.10(H) 3.80 - 4.80 M/mcL LAB HEMETOLOGY METHOD 08/30/2024 5:30 PM EDT [facility] Hemoglobin 14.0 11.5 - 16.0 g/dL LAB HEMETOLOGY METHOD 08/30/2024 5:30 PM EDT [facility] Hematocrit 43.2 35.0 - 47.0 % LAB HEMETOLOGY METHOD 08/30/2024 5:30 PM EDT [facility] MCV 84.2 79.0 - 98.0 FL LAB HEMETOLOGY METHOD 08/30/2024 5:30 PM EDT [facility] MCH 27.3 27.0 - 32.0 pcg LAB HEMETOLOGY METHOD 08/30/2024 5:30 PM EDT [facility] MCHC 32.4 32.0 - 37.0 g/dL LAB HEMETOLOGY METHOD 08/30/2024 5:30 PM EDT [facility] RDW 14.1 11.0 - 15.0 % LAB HEMETOLOGY METHOD 08/30/2024 5:30 PM EDT [facility] Platelets 396 130 - 400 K/mcL LAB HEMETOLOGY METHOD 08/30/2024 5:30 PM EDT [facility] MPV 9.8 7.0 - 11.0 FL LAB HEMETOLOGY METHOD 08/30/2024 5:30 PM EDT [facility] NRBC 0.0 <1.0 % LAB HEMETOLOGY METHOD 08/30/2024 5:30 PM EDT [facility] NRBC Absolute 0.00 <0.10 K/mcL LAB HEMETOLOGY [facility] Neutrophils Relative 53.9 % LAB HEMETOLOGY METHOD 08/30/2024 5:30 PM EDT [facility] Lymphocytes Relative 35.3 % LAB HEMETOLOGY METHOD 08/30[facility]2024 5:30 [facility] Monocytes Relative 8.7 % LAB HEMETOLOGY METHOD 08/30[facility]2024 5:30 [facility] Eosinophils Relative 1.0 % LAB HEMETOLOGY METHOD 08/30/2024 5:30 [facility] Basophils Relative 0.8 % LAB HEMETOLOGY METHOD 08/30/2024 5:30 PM EDT [facility] Immature Granulocytes Relative 0.3 % LAB HEMETOLOGY METHOD 08/30/2024 5:30 PM EDT [facility] Neutrophils Absolute 6.42 1.50 - 7.00 K/mcL LAB HEMETOLOGY METHOD 08/30/2024 5:30 PM EDT [facility] Lymphocytes Absolute 4.20 1.00 - 5.00 K/mcL LAB HEMETOLOGY METHOD 08/30/2024 5:30 PM EDT [facility] Monocytes Absolute 1.03(H) 0.20 - 1.00 K/mcL LAB HEMETOLOGY METHOD 08/30/2024 5:30 PM EDT [facility] Eosinophils Absolute 0.12 0.00 - 0.50 K/mcL LAB HEMETOLOGY METHOD 08/30/2024 5:30 PM EDT [facility] Basophils Absolute 0.10 0.00 - 0.20 K/[facility] LAB HEMETOLOGY METHOD 08/30/2024 5:30 PM EDT [facility] Immature Granulocytes Absolute 0.03 0.00 - 0.03 K/mcL LAB HEMETOLOGY METHOD 08/30/2024 5:30 PM EDT [facility] Blood Venous blood specimen / Unknown Venipuncture / Unknown 08/30/2024 5:11 PM EDT 08/30/2024 5:24 PM EDT us Harley Trujillo MD LAB BLOOD ORDERABLES Final Resu lt Performing Organization Address City/[facility]/ZIP Co de Phone Number [facility] [address] [place] [address], [place] [phone] * B-type natriuretic peptide (08/30/2024 5:11 PM EDT) BNP 16 <=100 pcg/mL LAB CHEMISTRY METHOD 08/30/2024 5:56 PM EDT [facility] Blood Venous blood specimen / Unknown Venipuncture / Unknown 08/30/2024 5:11 PM EDT 08/30/2024 5:24 PM EDT us Harley Trujillo MD LAB BLOOD ORDERABLES Final Resu lt [facility] [address] [place] [address], [place] [phone] * Magnesium (08/30/2024 5:11 PM EDT) Magnesium 1.9 1.9 - 2.6 mg/dL LAB CHEMISTRY METHOD 08/30/2024 5:55 PM EDT [facility] Blood Venous blood specimen / Unknown Venipuncture / Unknown 08/30/2024 5:11 PM EDT 08/30/2024 5:24 PM EDT us Harley Trujillo MD LAB BLOOD ORDERABLES Final Resu lt [facility] [address] [place] [address], [place] [phone] * (ABNORMAL) Lipase (08/30/2024 5:11 PM EDT) Pathologist [facility] Lipase 118(H) 13 - 75 unit/L LAB CHEMISTRY METHOD 08/30/2024 5:55 PM EDT [facility] Blood Venous blood specimen / Unknown Venipuncture / Unknown 08/30/2024 5:11 PM EDT 08/30/2024 5:24 PM EDT us Harley Trujillo MD LAB BLOOD ORDERABLES Final Resu lt Performing Organization Address City/[facility]/ZIP Co de Phone Number [facility] [address] [place] [address], [place] [phone] * Comprehensive metabolic panel (08/30/2024 5:11 PM EDT) Sodium 137 133 - 145 mmol/L LAB CHEMISTRY METHOD 08/30/2024 6:42 PM EDT [facility] Potassium 3.6 3.5 - 5.5 mmol/L LAB CHEMISTRY METHOD 08/30/2024 6:42 PM EDT [facility] Chloride 103 96 - 110 mmol/L LAB CHEMISTRY METHOD 08/30/2024 6:42 PM EDT [facility] CO2 27 21 - 32 mmol/L LAB CHEMISTRY METHOD 08/30/2024 6:42 PM [facility] Anion Gap 7 3 - 11 LAB CHEMISTRY METHOD 08/30/2024 6:42 PM [facility] Glucose 94 70 - 100 mg/dL LAB CHEMISTRY METHOD 08/30/2024 6:42 PM [facility] BUN 9 5 - 25 mg/dL LAB CHEMISTRY METHOD 08/30/2024 6:42 PM [facility] Creatinine 0.61 0.50 - 1.10 mg/dL LAB CHEMISTRY METHOD 08/30/2024 6:42 PM [facility] eGFR 115 >=60 mL/min/1. 73m2 LAB CHEMISTRY METHOD 08/30/2024 6:42 PM [facility] Comment:Calculation based on the??Chronic Kidney Disease Epidemiology Collaboration (CKD-EPI) equation refit??without adjustment for race. BUN/Creatinine Ratio 14.8 LAB CHEMISTRY METHOD 08/30/2024 6:42 PM [facility] Calcium 9.7 8.5 - 10.5 mg/dL LAB CHEMISTRY METHOD 08/30/2024 6:42 PM [facility] AST (SGOT) 20 10 - 42 unit/L LAB CHEMISTRY METHOD 08/30/2024 6:42 PM [facility] ALT (SGPT) 28 10 - 60 unit/L LAB CHEMISTRY METHOD 08/30/2024 6:42 PM [facility] Alkaline Phosphatase 89 42 - 121 unit/L LAB CHEMISTRY METHOD 08/30/2024 6:42 PM [facility] Total Protein 7.5 6.0 - 8.0 g/dL LAB CHEMISTRY METHOD 08/30/2024 6:42 PM [facility] Albumin 4.1 3.2 - 5.0 g/dL LAB CHEMISTRY METHOD 08/30/2024 6:42 PM [facility] Total Bilirubin 0.8 0.0 - 1.4 mg/dL LAB CHEMISTRY METHOD 08/30/2024 6:42 PM EDT [facility] Blood Venous blood specimen / Unknown Venipuncture / Unknown 08/30/2024 5:11 PM EDT 08/30/2024 5:24 PM EDT us Harley Trujillo MD LAB BLOOD ORDERABLES Final Resu lt [facility] [address] [place] [address], from Last 3 Months Care Teams Orthopedic Shoe Fitter Relationship Specialty Start Date End Date Nichole Petit MD [address] [place] [id number] PCP - General Internal Medicine 01/12/18
== END 2024-11-08 10:54 | disposition home or self-care (01) ==
LOC: HO.HMCSH 10:10
PROVIDERS: PCP Physician Assistant Medical; Visit Provider Physician Assistant Medical
DX: Z76.89 Persons encountering health services in other specified circumstances (principal); I10 Essential (primary) hypertension; R00.0 Tachycardia, unspecified; Z87.19 Personal history of other diseases of the digestive system; Z80.7 Family history of other malignant neoplasms of lymphoid, hematopoietic and related tissues; R07.9 Chest pain, unspecified

== ENCOUNTER → 2024-11-08 10:10 | Outpatient (REF) | payer OTHER, SELFPAY ==
[2024-11-08 11:49] LABS: MANUAL DIFF FLAG NO
[2024-11-08 11:53] LABS: Basophils Absolute Auto 0.1 X10*3/uL (0.0-0.2); Basophils Percent Auto 0.6 % (0-2); Eosinophils Percent Auto 0.1 % (0-4); Hematocrit 42.5 % (37.0-47.0); Hemoglobin 14.2 g/dl (12.0-16.0); Imm Gran Abs Auto 0.06 X10*3/uL (0.00-0.03); Imm Gran Pct Auto 0.4 % (0.0-0.4); Lymphocytes Absolute Auto 2.1 X10*3/uL (1.2-4.9); Lymphocytes Percent Auto 14.1 % (20-40); Mean Corpuscular HGB Conc 33.4 g/dl (31.0-35.0); Mean Corpuscular Hemoglobin 27.6 pg (27.0-33.0); Mean Corpuscular Volume 82.5 fL (80.0-98.0); Mean Platelet Volume 9.5 fL (9.4-12.3); Monocytes Absolute Auto 0.9 X10*3/uL (0.1-1.2); Monocytes Percent Auto 5.7 % (2-11); Neutrophils Absolute Auto 11.8 x10*3/uL (2.0-8.3); Neutrophils Percent Auto 79.1 % (45-73); Platelet Count 373 X10*3/uL (160-400); Red Blood Count 5.15 X10*6/uL (4.20-5.50); Red Cell Distribution Width 14.6 % (11.0-16.0); White Blood Count 14.9 X10*3/uL (4.8-10.8)
[2024-11-08 12:07] LABS: Anion Gap 10 (12-20); Blood Urea Nitrogen 8 mg/dL (9-16); Calcium 9.9 mg/dL (8.4-10.2); Carbon Dioxide 27 mmol/L (22-29); Chloride 106 mmol/L (96-108); Estimated Glomerular Filt Rate > 60; Glucose Random 100 mg/dL (60-115); Potassium 4.3 mmol/L (3.3-5.1); Sodium 139 mmol/L (135-145)
[2024-11-08 12:15] LABS: Troponin-I High Sensitivity < 2.7 ng/L (<3.5-17.0)
== END ==
LOC: HO.CARD 10:10
PROVIDERS: PCP Physician Assistant Medical; Visit Provider Physician Assistant Medical
DX: Z76.89 Persons encountering health services in other specified circumstances (principal); I10 Essential (primary) hypertension; R00.0 Tachycardia, unspecified; R07.9 Chest pain, unspecified; Z87.19 Personal history of other diseases of the digestive system; Z80.7 Family history of other malignant neoplasms of lymphoid, hematopoietic and related tissues; Z00.00 Encounter for general adult medical examination without abnormal findings
CPT/HCPCS: 36415; 80048; 82550; 84484; 85025; 96127; 99212

== ENCOUNTER → 2024-11-30 07:41 | Outpatient (REF) | payer OTHER, SELFPAY ==
--- NOTE | 2024-11-30 07:44 | CA_ITS ---
Acquisition Time: 2024-11-30 09:05:05 Total Exercise Time: 00:08:23 Test Indications: CP,Abnormal ECG HTN Medications: LISINOPRIL Protocol: ZORAN Max HR: 148 BPM 83% of Pred: 177 BPM Max BP: 194/106 mmHG Max Work Load: 10.1 METS Exercise stress test with exercise 8 mins 23 secs of Zoran Protocol, achieving 84% MPHR, with reports of SOB, no chest pain, with isolated PVCs, with hypertensive response to exercise- max BP 194/106. Without any EKG changes meetingcriteria for ischemia. In recovery, breathing returned to baseline. Test reviewed with Dr. Fried. Referred By: Tatyana Uribe Electronically Signed By: Paul Bass
--- NOTE | 2024-11-30 07:44 | CA_ITS ---
Transthoracic Echocardiogram Patient (Last, First, Middle): Lana Woods, Gender: Female Date of : 1980 Age: 44 Procedure Date: 11/30/2024 Procedure Type: Transthoracic Echocardiogram Location: OP Height: 167. cm Weight: 65.77 kg BSA: 1.74 m2 Heart Rate: 70 bpm BP: 135 / 85 mmHg Tomography Technologist: BETH Abernathy MD: Tatyana Uribe PA-C Ventilation Worker: Viraj Fried MD Symptoms: R03.0 - Elevated blood-pressure reading, without diagnosis of hypertension Study Quality: Adequate ECG Rhythm: Sinus Conclusions: - Essentially normal study Findings Left Ventricle Normal left ventricular size, thickness, and systolic function. The visually estimated ejection fraction is between 60-65%. Diastolic function is normal for age. Right Ventricle Normal right ventricular cavity size and systolic function. Atria Both atria are normal in size. There is no evidence of interatrial shunt. Aortic Valve Normal aortic valve structure and function. There is no aortic valve stenosis. There is no aortic valve regurgitation. Mitral Valve Normal mitral valve structure and function. There is trace mitral valve regurgitation. There is no mitral valve stenosis. Pulmonic Valve The pulmonic valve is likely normal. There is trace pulmonic valve regurgitation. Tricuspid Valve Normal tricuspid valve structure. There is trace tricuspid valve regurgitation. The right ventricular systolic pressure is normal. The right ventricular systolic pressure is 22 mmHg. Normal right atrial pressure. There is no evidence of pulmonary hypertension. Great Vessels All visible segments of the aorta are normal in size. The pulmonary artery was not well visualized. Venous The inferior vena cava is normal in size and collapses greater than 50% with inspiration. Pericardium/Pleural There is no evidence of pericardial effusion. Prior Study Comparison No prior study available for comparison. Measurements 2D Linear Measurements IVSd: 0.94 0.6-0.9/0.6-1.0 cm LVIDd: 5.01 3.9-5.3/4.2-5.9 cm LVIDd Index: 2.88 2.4-3.2/2.2-3.1 cm/m2 LVIDs: 3.42 2.0-3.6 cm LVPWd: 0.99 0.7-1.1 cm LA Diam: 3.90 2.7-3.8/3.0-4.0 cm LAIDs Index: 2.24 1.5-2.3 cm/m2 LV Mass: 216.54 67-162/88-224 g LV Mass Index: 124.45 43-95/49-115 g/m2 LVOT Diam: 2.00 3.0+(-)1.3 cm 2D Systolic Function EF 4C: 65.30 >55% EF 2C: 65.50 >55% EF BiP: 64.80 >55% Mitral Valve MV Pk E: 0.79 MV PK A: 0.71 MV Decel Time: 205.00 E/A: 1.10 E'Lateral: 12.30 E'Medial: 9.79 E/E' Med: 8.10 E/E' Lat: 6.40 PHT: 60.00 MVA PHT: 3.67 Decel Hall: 3.86 Aortic Valve AoV Pk Maco: 1.32 AoV Mn Maco: 0.96 AoV VTI: 0.32 AoV Pk Grad: 7.00 Aov Mn Grad: 4.00 COY Cont.VTI: 2.71 LVOT LVOT Pk Maco: 1.38 LVOT Mn Maco: 0.85 LVOT VTI: 0.28 LVOT Pk Grad: 8.00 LVOT Mn Grad: 3.00 LVOT Diam: 2.00 LVOT Area: 3.14 Diastolic Function MV Pk E: 0.79 MV Pk A: 0.71 E/A: 1.10 E'Medial: 9.79 E/E' Med: 8.10 E' Laterial: 12.30 E/E' Lat: 6.40 Right Ventricle TAPSE (mm): 26.40 TVS' Maco: 10.60 Tricuspid Valve TR Pk Maco: 2.20 TR Pk Grad: 19.00 RA Press: 3.00 RVSP: 22.00 Great Vessels Aorta Sinus of Valsalva: 2.80 2.0-3.5 cm Ao Asc: 3.20 2.1-3.4 cm Ao Arch: 2.80 Pulmonary Valve PV Pk Maco: 0.96 Peak PV Grad: 4.00 Updated in Other Vendor System with Status of Final Viraj Fried MD electronically signed on 11/30/2024 11:45:15 AM with status of Final
--- NOTE | 2024-11-30 09:38 | HM_ITS ---
* Total monitoring time 3 days. * Underlying rhythm is sinus with an average rate of 75/Min. * Rare supraventricular ectopy. * Rare ventricular ectopy. One couplet and 2 triplets. * No significant pauses or high-grade AV blocks. * No patient markers or diary events. MTDD
== END ==
LOC: HO.CARD 07:41
PROVIDERS: PCP Physician Assistant Medical; Visit Provider Physician Assistant Medical
DX: R07.9 Chest pain, unspecified (principal); R03.0 Elevated blood-pressure reading, without diagnosis of hypertension; R00.0 Tachycardia, unspecified
CPT/HCPCS: 93017; 93242; 93306

== ENCOUNTER → 2024-11-30 07:44 | Outpatient (BNV) | payer OTHER, SELFPAY | PROVIDERS: PCP Physician Assistant Medical; Visit Provider Internal Medicine Cardiovascular Disease | DX: R94.31 Abnormal electrocardiogram [ECG] [EKG] (principal); R03.0 Elevated blood-pressure reading, without diagnosis of hypertension; R06.02 Shortness of breath; I49.3 Ventricular premature depolarization | CPT/HCPCS: 93016; 93018; 93320; 93325; 93350 ==

== ENCOUNTER 2024-12-06 15:54 | Outpatient (AMB) | payer OTHER, SELFPAY ==
[2024-12-06 15:53] VITALS: BP 152/81; PULSE 72; RESP 14; TEMP 36.6; O2SAT 99; BMI 23.4
--- NOTE | 2024-12-06 15:53 | A.OFFPC_ITS ---
Vital Signs 12/06/24 15:53 Height 5 ft 6 in Weight 145 lb BMI 23.4 BP 152/81 H Respiration 14 Pulse 72 Pulse Source Pulse Oximeter Temp 97.8 F Temp Source Temporal Artery Scan Pulse Oximetry (%) 99 Oxygen Delivery Method Room Air Intake Visit Reasons: f/u lab tests and stress test Build Technician Required: No Accompanied by: Self / Same As Patient Allergies No Known Allergies Allergy (Verified 12/06/24 16:26) Medication List - Last Reconciled 12/06/24 by Tatyana Uribe PA-C amlodipine 2.5 mg PO DAILY lisinopril 10 mg PO DAILY Tobacco use date assessed: 12/06/24 Dental Screening Dental Screen Date: 10/02/24 HPI f/u lab tests and stress test HPI Details The patient is a 44-year-old female presenting for a follow-up visit due to hypertension and tachycardia. The patient reports persistent hypertension with readings as high as 180s/88 mmHg, although recent measurements have shown some improvement to 152/81 mmHg. She experiences higher blood pressure in the mornings despite taking her medication in the morning, suggesting a possible need for medication timing adjustment. The patient has been on lisinopril, and there is consideration of adjusting the dosage or adding another antihypertensive medication to better control her blood pressure. The patient also reports episodes of tachycardia, with heart rates recorded as high as 214 bpm during sleep, causing significant fatigue upon waking. She den ies any associated chest pain or shortness of breath during these episodes. A Holter monitor was used to assess these episodes, and results are pending. The patient underwent an echocardiogram and stress test, both of which showed normal results except for isolated premature ventricular contractions (PVCs) noted during the stress test. The echocardiogram revealed no structural heart abnormalities, and the ejection fraction was within normal limits. Social History - Reports increased water intake and red uced juice consumption to manage sugar levels. ON LICENSE OF [facility] Medical History (Updated 12/06/24 @ 16:29 by Tatyana Uribe PA-C) PVC (premature ventricular contraction) Family history of non-Hodgkin's lymphoma Intermittent chest pain Hypertension Mammogram declined (~10/02/24) History of pancreatitis Cervical cancer screening Elevated blood pressure reading Sinus tachycardia Serum lipase elevation Establishing care with new doctor, encounter for Family History Father Brain aneurysm Mother No problems noted. Maternal Uncle Non Hodgkin's lymphoma Maternal Aunt Non Hodgkin's lymphoma Social History Housing: Apartment Alcohol intake: current Alcohol intake frequency: does not drink Patient Tobacco Use Status: Current everyday Tobacco user Tobacco use type: Cigarette Cigarettes Per Day: 10 service: No Current occupational status: employed Cognitive needs: No Hearing needs: No Vision needs: No Questionnaire PHQ-9 Over the last 2 weeks, how often have you been bothered by any of the following problems? 1. Little interest or pleasure in doing things: not at all 2. Feeling down, depressed, or hopeless: not at all 3. Trouble falling or staying asleep, or sleeping too much: not at all 4. Feeling tired or having little energy: not at all 5. Poor appetite or overeating: not at all 6. Feeling bad about yourself - or that you are a failure or have let yourself or your family down: not at all 7. Trouble concentrating on things, such as reading the newspaper or watching television: not at all 8. Moving or speaking so slowly that other people could have noticed. Or the opposite - being so fidgety or restless that you have been moving around a lot more than usual: not at all 9. Thoughts that you would be better off or of hurting yourself in some way: not at all Total score: 0 Depression Screening Interpretation: Negative Depression Screening Done: Yes 84695 - PHQ-9 Billing: Yes Source: Developed by Drs. Samy Rashid, Guadalupe Rubalcava, Charlie Moses and colleagues, with an educational mamta from [employer]. Thrive Questionnaire Date Thrive assessed: 11/08/24 I am a: Patient What is your living situation today?: I have a steady place to live Within the past 12 months, did the food you bought not last and you didn't have the money to get more?: Never true Within the past 12 months, did you worry whether your food would run out before you got money to buy more?: Never true Do you have trouble paying for medicines?: No Do you have trouble getting transportation to medical appointments?: No Do you have trouble paying your heating and electricity bill?: No Do you have trouble taking care of your child, family member or friend?: No Do you have trouble with day-to-day activities such as bathing, preparing meals, shopping, managing finances, etc.?: No Are you currently unemployed and looking for a job?: No Are you interested in more education?: No Please select the resources that you would like help with: None THRIVE Score: 0 AUDIT C Alcohol Use Questionnaire (AUDIT-C) 1. How often do you have a drink containing alcohol?: Never 3. How often do you have six or more drinks on one occasion?: Never Total Score: 0 Score Reviewed/Action Taken: No DAYANNA-7 AMB Questionnaire DAYANNA-7 Date DAYANNA - 7 assessed: 11/08/24 Feeling nervous, anxious, or on edge: 0 = Not at all Not being able to stop or control worryin = Not at all Worrying too much about different things: 0 = Not at all Trouble relaxin = Not at all Being so restless that it is hard to sit still: 0 = Not at all Becoming easily annoyed or irritable: 0 = Not at all Feeling afraid as if something awful might happen: 0 = Not at all Total DAYANNA-7 score (0-4 normal; 5-9 mild; 10-14 moderate; 15-21 severe): 0 Source: Developed by Drs. Samy Rashid, Guadalupe Rubalcava, Charlie Moses and colleagues, with an educational mamta from [employer]. DAYANNA-7 Assessment Billing DAYANNA-7 Assessment Tool: DAYANNA-7 Assessment 56501 Review of Systems Const Details: - Cardiovascular: Reports tachycardia during sleep. Denies chest pain or dyspnea. Physical exam (Primary Care) Vital Signs: Last Vital Signs Temp 97.8 F 12/06/24 15:53 Pulse 72 12/06/24 15:53 Resp 14 12/06/24 15:53 BP 152/81 H 12/06/24 15:53 Pulse Ox 99 12/06/24 15:53 Oxygen Delivery Method Room Air 12/06/24 15:53 Care Plan Goal for BP management: <140/90 patient to continue lisinopril 10 mg will add amlodipine 2.5 mg and patient will return in 1 month BMI result Body Mass Index 23.4 Normal BMI Tobacco/Smoking Status: Tobacco use Status Tobacco use date assessed 12/06/24 12/06/24 15:54 Patient Tobacco Use Status Current everyday Tobacco 12/06/24 15:54 Tobacco use type Cigarette 12/06/24 15:54 PHQ-9: PHQ-9 Score PHQ-9: Total score 0 12/06/24 15:59 Depression Screening Interpretation: Negative Thrive Assessment: Date of Thrive Assessment Date Thrive assessed 11/08/24 12/06/24 15:54 Const Other: Appearance: Alert. Oriented X3. No acute distress. Head: Normal external exam. Normocephalic. Atraumatic. Eyes: Pupils are equal, round, and reactive to light. Extraocular movements intact. Conjunctiva and sclera normal. Eyelids normal. Throat: Pharynx normal. Uvula midline. Moist mucous membranes. Neck: Normal inspection. Neck supple. Full range of motion. Cardiovascular: Normal heart rate and rhythm. Heart sound normal. No murmurs noted. Pulses normal throughout. Respiratory: No respiratory distress. Painless inspiration. Breath sounds normal. No wheezes/rales/rhonchi noted. Chest nontender. No accessory muscle usage noted or decreased air movement noted. Back: Full range of motion noted. Skin: Skin warm and dry. Normal skin color. Normal skin turgor. No rashes/lesions/lacerations noted. Extremities: Extremities exhibit normal range of motion. Results Reviewed Results Reviewed: - Echocardiogram: Normal, ejection fraction 60-65%, no structural abnormalities - Stress Test: Isolated premature ventricular contractions (PVCs) noted, no ischemia - EKG normal sinus rhythm with nonspecific ST abnormalities no acute ischemic changes were noted Coding Level of Care Code Est Pt Level 4 (43270) Complex EM visit Add On G2211 Diagnoses Hypertension I10 Sinus tachycardia R00.0 PVC (premature ventricular contraction) I49.3 Additional Codes DAYANNA-7 Assessment Billing - DAYANNA-7 Assessment Tool: DAYANNA-7 Assessment 21678 ([id number]) PHQ-9 - 20040 - PHQ-9 Billing: Yes ([id number]) Assessment & Plan Assessment & Plan (1) Hypertension: Code(s): I10 - Essential (primary) hypertension Category: Medical Plan: The plan for hypertension includes considering an adjustment in the timing of lisinopril administration to nighttime to address morning hypertension spikes. Additionally, the introduction of amlodipine at a low dose of 5 mg at night is planned to help stabilize blood pressure and heart rate. (2) Sinus tachycardia: Code(s): R00.0 - Tachycardia, unspecified Category: Medical Plan: For tachycardia, the plan involves starting amlodipine to help control heart rate, with a follow-up in 30 days to assess effectiveness. The patient is advised to monitor heart rate and report any persistent elevations or symptoms. (3) PVC (premature ventricular contraction): Code(s): I49.3 - Ventricular premature depolarization Category: Medical Plan: The PVCs noted during the stress test are not currently causing significant concern, but monitoring will continue with the pending Holter monitor results. Plan Plan Patient was informed and verbally consented to the use of an ambient scribe for clinic note documentation during this visit. 1. Hypertension The plan for hypertension includes considering an adjustment in the timing of lisinopril administration to nighttime to address morning hypertension spikes. Additionally, the introduction of amlodipine at a low dose of 5 mg at night is planned to help stabilize blood pressure and heart rate. 2. Tachycardia For tachycardia, the plan involves starting amlodipine to help control heart rate, with a follow-up in 30 days to assess effectiveness. The patient is ad vised to monitor heart rate and report any persistent elevations or symptoms. 3. Premature Ventricular Contractions (Pvcs) The PVCs noted during the stress test are not currently causing significant concern, but monitoring will continue with the pending Holter monitor results. Plan Patient was informed and verbally consented to the use of an ambient scribe for clinic note documentation during this visit. 1. Hypertension The plan for hypertension includes considering an adjustment in the timing of lisinopril administration to nighttime to address morning hypertension spikes. Additionally, the introduction of amlodipine at a low dose of 5 mg at night is planned to help stabilize blood pressure and heart rate. 2. Tachycardia For tachycardia, the plan involves starting amlodipine to help control heart rate, with a follow-up in 30 days to assess effectiveness. The patient is advised to monitor heart rate and report any persistent elevations or symptoms. 3. Premature Ventricular Contractions (Pvcs) The PVCs noted during the stress test are not currently causing significant concern, but monitoring will continue with the pending Holter monitor results. Medications: New amlodipine 2.5 mg PO DAILY 30 tabs 0RF amlodipine 2.5 mg PO DAILY 30 tabs 0RF Refilled lisinopril 10 mg PO DAILY 90 tabs 1RF lisinopril 10 mg PO DAILY 90 tabs 1RF Patient Instructions: - Take lisinopril as prescribed, consider taking it at night if advised by your doctor. - Start amlodipine 5 mg at night to help control blood pressure and heart rate. - Monitor your heart rate and report any persistent high readings or symptoms to your doctor. - Follow up in 30 days to assess the effectiveness of the treatment plan.
--- OUTSIDE RECORDS SUMMARY | 2024-12-06 15:57 | XMS_ITS | Clinical Summary ---
Author Organization [facility] Address [address] [place] [address] Phone Care Team Providers Care Millwright Name Role Phone Nichole Petit MD Primary Care Provider + [phone] Allergies No known active allergies Medications cyclobenzaprine (FLEXERIL) 10 mg tablet Take 1 tablet (10 mg total) by mouth 3 (three) times a day if needed for muscle spasms for up to 10 days. 15 tablet 08/31/2024 Active Social History Tobacco Use Types Packs/Day Years [...] 67 08/31/2024 12:50 AM EDT Temperature 36.8 C (98.2 F) 08/31/2024 12:50 AM EDT Respiratory Rate 15 08/31/2024 12:02 AM EDT [...] Screening: P ap Smear 2002 COVID-19 Vaccine (1 - 2023-2 5 season) 2024 Depression Screening 08/31/2024 HIV Screening 08/31/2024 Hepatitis C Screening 08/31/2024 Social Influencers of Health Screening 08/31/2024 Influenza Vaccine (#1) 2025 HIB Vaccines Aged Out No longer [...] 5 Years) and At-Risk Patients (6 to 49 Years) Aged Out No longer eligible b ased on patient's age to complete this topic RSV Immunization Patients Un sixto 20 months Aged Out No longer eligible b ased on patient's age to complete this topic Varicella Vaccines Aged Out No longer eligible based on patient's age to complete this topic Care Teams Millwright Relationship Specialty Start Date End Date Nichole Petit MD [address] [place] [address] PCP - General Internal Medicine 01/12/18
== END 2024-12-06 16:25 | disposition home or self-care (01) ==
LOC: HO.HMCSH 15:54
PROVIDERS: PCP Physician Assistant Medical; Visit Provider Physician Assistant Medical
DX: I10 Essential (primary) hypertension (principal); R00.0 Tachycardia, unspecified; I49.3 Ventricular premature depolarization

== ENCOUNTER → 2024-12-06 15:54 | Outpatient (BNVA) | payer OTHER, SELFPAY | PROVIDERS: PCP Physician Assistant Medical; Visit Provider Physician Assistant Medical | DX: I10 Essential (primary) hypertension (principal); R00.0 Tachycardia, unspecified; I49.3 Ventricular premature depolarization | CPT/HCPCS: 96127; 99212 ==

== ENCOUNTER 2025-01-16 15:49 | Outpatient (AMB) | payer OTHER, SELFPAY ==
--- NOTE | 2025-01-16 15:55 | A.OFFPC_ITS ---
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 Accompanied by: Self / Same As Patient Allergies No Known Allergies Allergy (Verified 01/16/25 17:16) Medication List - Last Reconciled 01/16/25 by Tatyana Uribe PA-C amlodipine 10 mg PO DAILY lisinopril 10 mg PO DAILY Tobacco use date assessed: 12/06/24 Dental Screening Dental Screen Date: 10/02/24 Did you have a dental visit in the last 12 months?: Yes Did you have a dental problem in the last 6 months where you did not have access to dental care?: No Was dental information given to patient?: Patient has dentist HPI 1 month follow up HPI Details The patient is a 44-year-old female presenting with hypertension and intermittent tachycardia. The patient reports a history of elevated blood pressure readings both at home and in clinical settings, with recent measurements of 157/86 mmHg and 151/88 mmHg. She is currently on amlodipine 2.5 mg and lisinopril 10 mg, with a plan to increase the amlodipine dosage due to persistent hypertension. The patient experiences episodes of tachycardia, which have been evaluated in emergency settings with normal sinus rhythm noted on EKGs. Patient had a normal stress test on 11/30/2024. Patient had an essentially normal echocardiogram on 11/30/2024. Patient had a 3 day Holter monitor which was normal and did not show any significant changes. Patient has a repeat Holter monitor is scheduled to further assess these episodes for a 14 day course, and a CTA of the chest is planned to rule out structural abnormalities. She was referred to Cardiology and has an appointment February 2025. The patient has a history of anxiety, which may contribute to her symptoms, and she has not experienced any recent episodes of heart racing. [facility] Medical History (Updated 01/16/25 @ 17:24 by Tatyana Uribe PA-C) Anxiety PVC (premature ventricular contraction) Family history of non-Hodgkin's lymphoma Intermittent chest pain Hypertension Mammogram declined (~10/02/24) History of pancreatitis Cervical cancer screening Elevated blood pressure reading Sinus tachycardia Serum lipase elevation Establishing care with new doctor, encounter for Family History Father Brain aneurysm Mother No problems noted. Maternal Uncle Non Hodgkin's lymphoma Maternal Aunt Non Hodgkin's lymphoma Social History Housing: Apartment Alcohol intake: current Alcohol intake frequency: does not drink Patient Tobacco Use Status: Current everyday Tobacco user Tobacco use type: Cigarette Cigarettes Per Day: 10 service: No Current occupational status: employed Cognitive needs: No Hearing needs: No Vision needs: No Questionnaire PHQ-9 Over the last 2 weeks, how often have you been bothered by any of the following problems? 1. Little interest or pleasure in doing things: not at all 2. Feeling down, depressed, or hopeless: not at all 3. Trouble falling or staying asleep, or sleeping too much: not at all 4. Feeling tired or having little energy: not at all 5. Poor appetite or overeating: not at all 6. Feeling bad about yourself - or that you are a failure or have let yourself or your family down: not at all 7. Trouble concentrating on things, such as reading the newspaper or watching television: not at all 8. Moving or speaking so slowly that other people could have noticed. Or the opposite - being so fidgety or restless that you have been moving around a lot more than usual: not at all 9. Thoughts that you would be better off or of hurting yourself in some way: not at all Total score: 0 Depression Screening Interpretation: Negative Depression Screening Done: Yes 44049 - PHQ-9 Billing: Yes Source: Developed by Drs. Samy Rashid, Guadalupe Rubalcava, Charlie Moses and colleagues, with an educational mamta from [employer]. Thrive Questionnaire Date Thrive assessed: 11/08/24 I am a: Patient What is your living situation today?: I have a steady place to live Within the past 12 months, did the food you bought not last and you didn't have the money to get more?: Never true Within the past 12 months, did you worry whether your food would run out before you got money to buy more?: Never true Do you have trouble paying for medicines?: No Do you have trouble getting transportation to medical appointments?: No Do you have trouble paying your heating and electricity bill?: No Do you have trouble taking care of your child, family member or friend?: No Do you have trouble with day-to-day activities such as bathing, preparing meals, shopping, managing finances, etc.?: No Are you currently unemployed and looking for a job?: No Are you interested in more education?: No Please select the resources that you would like help with: None THRIVE Score: 0 AUDIT C Alcohol Use Questionnaire (AUDIT-C) 1. How often do you have a drink containing alcohol?: Never 3. How often do you have six or more drinks on one occasion?: Never Total Score: 0 Score Reviewed/Action Taken: No DAYANNA-7 AMB Questionnaire DAYANNA-7 Date DAYANNA - 7 assessed: 11/08/24 Feeling nervous, anxious, or on edge: 0 = Not at all Not being able to stop or control worryin = Not at all Worrying too much about different things: 0 = Not at all Trouble relaxin = Not at all Being so restless that it is hard to sit still: 0 = Not at all Becoming easily annoyed or irritable: 0 = Not at all Feeling afraid as if something awful might happen: 0 = Not at all Total DAYANNA-7 score (0-4 normal; 5-9 mild; 10-14 moderate; 15-21 severe): 0 Source: Developed by Drs. Samy Rashid, Guadalupe Rubalcava, Charlie Moses and colleagues, with an educational mamta from [employer]. DAYANNA-7 Assessment Billing DAYANNA-7 Assessment Tool: DAYANNA-7 Assessment 13008 Review of Systems Const Details: - Cardiovascular: Reports intermittent tachycardia. Denies chest pain. - General: Reports anxiety. Denies recent episodes of heart racing. All systems reviewed & are unremarkable except as noted in HPI and below Physical exam (Primary Care) Vital Signs: Last Vital Signs Temp 98.1 F 01/16/25 15:57 Pulse 69 01/16/25 15:57 Resp 20 01/16/25 15:57 BP 158/84 H 01/16/25 15:57 Pulse Ox 99 01/16/25 15:57 Oxygen Delivery Method Room Air 01/16/25 15:57 Care Plan Goal for BP management: <140/90 patient to continue lisinopril 10 mg will increase amlodipine 2.5 to 10 mg patient to return in 1 month BMI result Body Mass Index 22.8 Normal BMI Tobacco/Smoking Status: Tobacco use Status Tobacco use date assessed 12/06/24 01/16/25 16:01 Patient Tobacco Use Status Current everyday Tobacco 01/16/25 16:01 Tobacco use type Cigarette 01/16/25 16:01 PHQ-9: PHQ-9 Score PHQ-9: Total score 0 01/16/25 16:01 Depression Screening Interpretation: Negative Thrive Assessment: Date of Thrive Assessment Date Thrive assessed 11/08/24 01/16/25 16:01 Const Other: Appearance: Alert. Oriented X3. No acute distress. Head: Normal external exam. Normocephalic. Atraumatic. Eyes: Pupils are equal, round, and reactive to light. Extraocular movements intact. Conjunctiva and sclera normal. Eyelids normal. Throat: Pharynx normal. Uvula midline. Moist mucous membranes. Neck: Normal inspection. Neck supple. Full range of motion. d normal. No murmurs noted. Pulses normal throughout. Respiratory: No respiratory distress. Painless inspiration. Breath sounds normal. No wheezes/rales/rhonchi noted. Chest nontender. No accessory muscle usage noted or decreased air movement noted. Back: Full range of motion noted. Skin: Skin warm and dry. Normal skin color. Normal skin turgor. No rashes/lesions/lacerations noted. Extremities: No lower extremity edema. Extremities exhibit normal range of motion. Neuro: Oriented X 3. No motor deficit. No sensory deficit. Reflexes normal. Coding Level of Care Code Est Pt Level 4 (27736) Complex EM visit Add On G2211 Diagnoses Hypertension I10 Sinus tachycardia R00.0 Anxiety F41.9 Additional Codes DAYANNA-7 Assessment Billing - DAYANNA-7 Assessment Tool: DAYANNA-7 Assessment 56434 ([id number]) PHQ-9 - 96855 - PHQ-9 Billing: Yes ([id number]) Assessment & Plan Assessment & Plan (1) Hypertension: Code(s): I10 - Essential (primary) hypertension Category: Medical Plan: The patient will have her amlodipine dosage increased to 10 mg to better manage her blood pressure, as current readings remain elevated despite medication. She is advised to monitor her blood pressure at home and report any significant changes. (2) Sinus tachycardia: Code(s): R00.0 - Tachycardia, unspecified Category: Medical Plan: A Holter monitor is scheduled to capture any episodes of tachycardia, and a CTA of the chest will be performed to assess for any structural heart issues. The patient is instructed to follow up in 30 days to evaluate the effectiveness of the increased amlodipine dosage and review the results of the CTA. (3) Anxiety: Code(s): F41.9 - Anxiety disorder, unspecified Category: Medical Plan: The patient's anxiety is acknowledged as a potential contributing factor to her symptoms, and she is encouraged to continue any current management strategies. Plan Plan Patient was informed and verbally consented to the use of an ambient scribe for clinic note documentation during this visit. 1. Essential Hypertension The patient will have her amlodipine dosage increased to 10 mg to better manage her blood pressure, as current readings remain elevated despite medication. She is advised to monitor her blood pressure at home and report any significant changes. 2. Tachycardia A Holter monitor is scheduled to capture any episodes of tachycardia, and a CTA of the chest will be performed to assess for any structural heart issues. The patient is instructed to follow up in 30 days to evaluate the effectiveness of the increased amlodipine dosage and review the results of the CTA. 3. Anxiety The patient's anxiety is acknowledged as a potential contributing factor to her symptoms, and she is encouraged to continue any current management strategies. During the visit, we discussed the management of the patient's hypertension, including increasing the amlodipine dosage to 10 mg. We also reviewed the plan to use a Holter monitor and CTA to further investigate her tachycardia. The potential role of anxiety in her symptoms was acknowledged, and she was advised to continue monitoring her blood pressure at home. Follow-up was scheduled for 30 days to assess the effectiveness of the treatment adjustments and review diagnostic results. Orders: Orders Magnesium Today Z00.00 - Encounter for general adult medical examination without abnormal findings CT angio chest aorta Today I10 - Essential (primary) hypertension, I49.3 - Ventricular premature depolarization, R00.0 - Tachycardia, unspecified, R07.9 - Chest pain, unspecified Complete Blood Count Auto Diff Today Z00.00 - Encounter for general adult medical examination without abnormal findings Comprehensive Met. Panel Today Z00.00 - Encounter for general adult medical examination without abnormal findings Medications: Changed From amlodipine 2.5 mg PO DAILY 90 tabs 3RF To amlodipine 10 mg PO DAILY 30 tabs 0RF Patient Instructions: - Increase amlodipine dosage to 10 mg as prescribed. - Monitor blood pressure at home regularly and report any significant changes. - Follow up in 30 days for evaluation and review of diagnostic results.
[2025-01-16 15:57] VITALS: BP 158/84; PULSE 69; RESP 20; TEMP 36.7; O2SAT 99; BMI 22.8
== END 2025-01-16 16:27 | disposition home or self-care (01) ==
LOC: HO.HMCSH 15:49
PROVIDERS: PCP Physician Assistant Medical; Visit Provider Physician Assistant Medical
DX: I10 Essential (primary) hypertension (principal); R00.0 Tachycardia, unspecified; F41.9 Anxiety disorder, unspecified

== ENCOUNTER → 2025-01-16 15:49 | Outpatient (BNVA) | payer OTHER, SELFPAY | PROVIDERS: PCP Physician Assistant Medical; Visit Provider Physician Assistant Medical | DX: I10 Essential (primary) hypertension (principal); R00.0 Tachycardia, unspecified; F41.9 Anxiety disorder, unspecified; R07.9 Chest pain, unspecified; I49.3 Ventricular premature depolarization | CPT/HCPCS: 96127; 99212 ==

== ENCOUNTER → 2025-01-25 10:16 | Outpatient (REF) | payer OTHER, SELFPAY ==
--- NOTE | 2025-01-25 10:24 | ECG_ITS ---
Test Reason : chest pain Blood Pressure : */* mmHG Vent. Rate : 91 BPM Atrial Rate : 91 BPM P-R Int : 118 ms QRS Dur : 74 ms QT Int : 380 ms P-R-T Axes : 77 59 42 degrees QTcB Int : 467 ms Normal sinus rhythm Normal ECG When compared with ECG of 08-Nov-2024 11:37, T wave amplitude has decreased in Anterior leads Referred By: Tatyana Uribe Electronically Signed By: BETINA SCHOFIELD
--- NOTE | 2025-01-25 10:24 | HM_ITS ---
* Total monitoring time 14 days. * Underlying rhythm is sinus with an average rate of 83/Min. * Rare supraventricular ectopy. * Rare ventricular ectopy. * No significant pauses or high-grade AV blocks. * Shortness of breath, rapid heartbeat in patient diary correlates with sinus rhythm and sinus tachycardia. MTDD
--- OUTSIDE RECORDS SUMMARY | 2025-01-25 11:33 | XMS_ITS | Clinical Summary ---
Author Organization [facility] Address [address] [place] [address] Phone Care Team Providers Care Qa Tech Name Role Phone Nichole Petit MD Primary Care Provider + [phone] Allergies No known active allergies Medications cyclobenzaprine [...] - 2023-2 5 season) 2024 Depression Screening 05/31/2024 HIV Screening 08/31/2024 Hepatitis C Screening 08/31/2024 [...] age to complete this topic Care Teams Qa Tech Relationship Specialty Start Date End Date Nichole Petit MD [address] [place] [address] PCP - General Internal Medicine 01/12/18
== END ==
LOC: HO.CARD 10:16
PROVIDERS: PCP Physician Assistant Medical; Visit Provider Physician Assistant Medical
DX: I10 Essential (primary) hypertension (principal); R07.9 Chest pain, unspecified; I49.3 Ventricular premature depolarization; Z87.19 Personal history of other diseases of the digestive system; R00.0 Tachycardia, unspecified
CPT/HCPCS: 93005; 93246

== ENCOUNTER → 2025-01-25 10:24 | Outpatient (BNV) | payer OTHER, SELFPAY | PROVIDERS: PCP Physician Assistant Medical; Visit Provider Internal Medicine | DX: R07.9 Chest pain, unspecified (principal) | CPT/HCPCS: 93010 ==

== ENCOUNTER 2025-02-19 15:10 | Outpatient (AMB) | payer OTHER, SELFPAY ==
--- NOTE | 2025-02-19 15:19 | MHC.PC.OV ---
Vital Signs 02/19/25 15:20 Height 5 ft 6 in Weight 144 lb BMI 23.2 BP 140/82 H Blood Pressure Location Lt brachial Position Sitting Respiration 16 Pulse 81 Pulse Source Pulse Oximeter Temp 98.4 F Temp Source Temporal Artery Scan Pulse Oximetry (%) 99 Oxygen Delivery Method Room Air Intake Visit Reasons: 1 month f/u Bit Gatherer Required: No Accompanied by: Self / Same As Patient Allergies No Known Allergies Allergy (Verified 02/19/25 15:43) Medication List - Last Reconciled 02/19/25 by Tatyana Uribe PA-C amlodipine 2.5 mg PO DAILY lisinopril 10 mg PO DAILY Tobacco use date assessed: 02/19/25 Dental Screening Dental Screen Date: 02/19/25 Did you have a dental visit in the last 12 months?: No HPI 1 month f/u HPI Details The patient is a 44-year-old female presenting for management of hypertension and cardiac concerns. The patient has a history of essential hypertension and was previously on 10 mg of amlodipine, which she discontinued due to adverse effects such as feeling faint and experiencing hypotension. She reported a significant drop in blood pressure readings, with measurements as low as 97/62 mmHg and 103/56 mmHg, leading her to stop the medication. Currently, she is taking 10 mg of lisinopril, but continues to experience low blood pressure readings, particularly at night. Although over the past 2 days she noticed her blood pressure was rising therefore she restarted the lisinopril. And she also restarted the amlodipine 2.5 mg when she noticed it was still high after taking the lisinopril. The patient also has a history of cardiac arrhythmia, with a heart monitor indicating rare ventricular extra beats, but no significant arrhythmias or abnormal rhythms were detected. Her echocardiogram was normal, and she is advised to follow up with cardiology for further evaluation. 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 - Caffeine intake: Consumes coffee regularly, both during the week and on weekends. [facility] Medical History (Updated 02/19/25 @ 15:48 by Tatyana Uribe PA-C) Cardiac arrhythmia Anxiety PVC (premature ventricular contraction) Family history of non-Hodgkin's lymphoma Intermittent chest pain Hypertension Mammogram declined (~10/02/24) History of pancreatitis Cervical cancer screening Elevated blood pressure reading Sinus tachycardia Serum lipase elevation Establishing care with new doctor, encounter for Family History Father Brain aneurysm Mother No problems noted. Maternal Uncle Non Hodgkin's lymphoma Maternal Aunt Non Hodgkin's lymphoma Social History Housing: Apartment Alcohol intake: current Alcohol intake frequency: does not drink Patient Tobacco Use Status: Current everyday Tobacco user Tobacco use type: Cigarette Cigarettes Per Day: 10 service: No Current occupational status: employed Cognitive needs: No Hearing needs: No Vision needs: No Questionnaire PHQ-9 Over the last 2 weeks, how often have you been bothered by any of the following problems? 1. Little interest or pleasure in doing things: not at all 2. Feeling down, depressed, or hopeless: not at all 3. Trouble falling or staying asleep, or sleeping too much: not at all 4. Feeling tired or having little energy: not at all 5. Poor appetite or overeating: not at all 6. Feeling bad about yourself - or that you are a failure or have let yourself or your family down: not at all 7. Trouble concentrating on things, such as reading the newspaper or watching television: not at all 8. Moving or speaking so slowly that other people could have noticed. Or the opposite - being so fidgety or restless that you have been moving around a lot more than usual: not at all 9. Thoughts that you would be better off or of hurting yourself in some way: not at all Total score: 0 Depression Screening Interpretation: Negative Depression Screening Done: Yes 58744 - PHQ-9 Billing: Yes Source: Developed by Drs. Samy Rashid, Guadalupe Rubalcava, Charlie Moses and colleagues, with an educational mamta from [employer]. Thrive Questionnaire Date Thrive assessed: 11/08/24 I am a: Patient What is your living situation today?: I have a steady place to live Within the past 12 months, did the food you bought not last and you didn't have the money to get more?: Never true Within the past 12 months, did you worry whether your food would run out before you got money to buy more?: Never true Do you have trouble paying for medicines?: No Do you have trouble getting transportation to medical appointments?: No Do you have trouble paying your heating and electricity bill?: No Do you have trouble taking care of your child, family member or friend?: No Do you have trouble with day-to-day activities such as bathing, preparing meals, shopping, managing finances, etc.?: No Are you currently unemployed and looking for a job?: No Are you interested in more education?: No Please select the resources that you would like help with: None THRIVE Score: 0 AUDIT C Alcohol Use Questionnaire (AUDIT-C) 1. How often do you have a drink containing alcohol?: Never 3. How often do you have six or more drinks on one occasion?: Never Total Score: 0 Score Reviewed/Action Taken: No DAYANNA-7 AMB Questionnaire DAYANNA-7 Date DAYANNA - 7 assessed: 11/08/24 Feeling nervous, anxious, or on edge: 0 = Not at all Not being able to stop or control worryin = Not at all Worrying too much about different things: 0 = Not at all Trouble relaxin = Not at all Being so restless that it is hard to sit still: 0 = Not at all Becoming easily annoyed or irritable: 0 = Not at all Feeling afraid as if something awful might happen: 0 = Not at all Total DAYANNA-7 score (0-4 normal; 5-9 mild; 10-14 moderate; 15-21 severe): 0 Source: Developed by Drs. Samy Rashid, Guadalupe Rubalcava, Charlie Moses and colleagues, with an educational mamta from [employer]. DAYANNA-7 Assessment Billing DAYANNA-7 Assessment Tool: DAYANNA-7 Assessment 39383 Review of Systems Const Details: - Cardiovascular: Reports feeling faint and experiencing hypotension. Denies chest pain or palpitations. All systems reviewed & are unremarkable except as noted in HPI and below Physical exam (Primary Care) Vital Signs: Last Vital Signs Temp 98.4 F 02/19/25 15:20 Pulse 81 02/19/25 15:20 Resp 16 02/19/25 15:20 BP 140/82 H 02/19/25 15:20 Pulse Ox 99 02/19/25 15:20 Oxygen Delivery Method Room Air 02/19/25 15:20 Care Plan Goal for BP management: <140/90 patient to continue lisinopril 10 mg and amlodipine 2.5 mg daily BMI result Body Mass Index 23.2 Tobacco/Smoking Status: Tobacco use Status Tobacco use date assessed 02/19/25 02/19/25 15:29 Patient Tobacco Use Status Current everyday Tobacco 02/19/25 15:29 Tobacco use type Cigarette 02/19/25 15:29 PHQ-9: PHQ-9 Score PHQ-9: Total score 0 02/19/25 15:29 Depression Screening Interpretation: Negative Thrive Assessment: Date of Thrive Assessment Date Thrive assessed 11/08/24 02/19/25 15:29 Const Other: Appearance: Alert. Oriented X3. No acute distress. Head: Normal external exam. Normocephalic. Atraumatic. Eyes: Pupils are equal, round, and reactive to light. Extraocular movements intact. Conjunctiva and sclera normal. Eyelids normal. Throat: Pharynx normal. Uvula midline. Moist mucous membranes. Neck: Normal inspection. Neck supple. Full range of motion. Cardiovascular: Normal heart rate and rhythm. Heart sound normal. No murmurs noted. Pulses normal throughout. Heart monitor shows super rare extra beats in the ventricle, but no significant pulses, high grade, or abnormal rhythm. Respiratory: No respiratory distress. Painless inspiration. Back: Full range of motion noted. Skin: Skin warm and dry. Normal skin color. Normal skin turgor. No rashes/lesions/lacerations noted. Extremities: Extremities exhibit normal range of motion. Neuro: Oriented X 3. No motor deficit. No sensory deficit. Reflexes normal. Office Procedures Flu Questionnaire Does the patient have a severe egg allergy?: No Does the patient have severe life threatening allergies?: No Does the patient have a fever or illness today?: No Has the patient ever had Guillain-[place] Syndrome?: No Has the patient ever had any past reaction to a flu shot?: No Immunizations Fluarix [id number] (PF) 45 mcg (15 mcg x 3)/0.5 mL IM syringe Performing Provider: Tatyana Uribe PA-C [place]forming [facility] [place] [facility] Documented (not given) by: Jennie Vasquez CMA on 02/19/25 15:30 Reason Not Given: Patient Refused Results Reviewed Results Reviewed: - extension service specialist: Rare ventricular extra beats, no significant arrhythmias or abnormal rhythms detected. - Echocardiogram: Normal findings. Coding Level of Care Code Est Pt Level 4 (08279) Complex EM visit Add On G2211 Diagnoses Hypertension I10 Cardiac arrhythmia I49.9 Additional Codes DAYANNA-7 Assessment Billing - DAYANNA-7 Assessment Tool: DAYANNA-7 Assessment 44115 ([id number]) PHQ-9 - 42913 - PHQ-9 Billing: Yes ([id number]) Assessment & Plan Assessment & Plan (1) Hypertension: Code(s): I10 - Essential (primary) hypertension Category: Medical Plan: The patient is advised to monitor her blood pressure closely and adjust her medication dosage as needed, particularly avoiding amlodipine due to previous adverse effects. She is currently taking lisinopril and is instructed to continue monitoring her blood pressure, especially during periods of activity and relaxation. (2) Cardiac arrhythmia: Code(s): I49.9 - Cardiac arrhythmia, unspecified Category: Medical Plan: The patient is advised to follow up with cardiology for further evaluation of her cardiac arrhythmia, despite the normal echocardiogram and rare ventricular extra beats noted on her heart monitor. She is encouraged to maintain regular follow-up appointments to monitor her cardiac health. Plan Plan Patient was informed and verbally consented to the use of an ambient scribe for clinic note documentation during this visit. 1. Essential Hypertension The patient is advised to monitor her blood pressure closely and adjust her medication dosage as needed, particularly avoiding amlodipine due to previous adverse effects. She is currently taking lisinopril and is instructed to continue monitoring her blood pressure, especially during periods of activity and relaxation. 2. Cardiac Arrhythmia The patient is advised to follow up with cardiology for further evaluation of her cardiac arrhythmia, despite the normal echocardiogram and rare ventricular extra beats noted on her heart monitor. She is encouraged to maintain regular follow-up appointments to monitor her cardiac health. During the visit, we discussed the patient's blood pressure management, emphasizing the importance of monitoring and adjusting medication as needed. We reviewed her compensator results, which showed rare ventricular extra beats but no significant arrhythmias. I advised her to follow up with cardiology for further evaluation and to maintain regular appointments to monitor her cardiac health. Orders: Orders Influenza [id number] Immunization Today Z23 - Encounter for immunization Medications: Discontinued amlodipine Discontinued Reason: Doctor's Order 10 mg PO DAILY 30 tabs 0RF Patient Instructions: - Monitor blood pressure regularly and adjust medication dosage as needed. - Avoid taking amlodipine due to previous adverse effects. - Follow up with cardiology for further evaluation of cardiac arrhythmia. - Maintain regular follow-up appointments to monitor cardiac health.
[2025-02-19 15:20] VITALS: BP 140/82; PULSE 81; RESP 16; TEMP 36.9; O2SAT 99; BMI 23.2
== END 2025-02-19 15:44 | disposition home or self-care (01) ==
LOC: HO.HMCSH 15:10
PROVIDERS: PCP Physician Assistant Medical; Visit Provider Physician Assistant Medical
DX: I10 Essential (primary) hypertension (principal); I49.9 Cardiac arrhythmia, unspecified; Z23 Encounter for immunization

== ENCOUNTER → 2025-02-19 15:10 | Outpatient (BNVA) | payer OTHER, SELFPAY | PROVIDERS: PCP Physician Assistant Medical; Visit Provider Physician Assistant Medical | DX: I10 Essential (primary) hypertension (principal); I49.9 Cardiac arrhythmia, unspecified; Z23 Encounter for immunization | CPT/HCPCS: 90471; 96127; 99212 ==

== ENCOUNTER 2025-03-15 08:12 | Outpatient (REF) | payer OTHER, SELFPAY ==
--- NOTE | ~2025-03-15 | CT_ITS ---
EXAMINATION: CT ANGIOGRAM CHEST CLINICAL INFORMATION: R 07.9. Chest pain, unspecified. COMPARISON: None available. TECHNIQUE: Multiple axial images were obtained through the chest after the administration of 70 mL of Omnipaque 350 intravenous contrast. Extensive vascular post-processing including two-dimensional and three-dimensional reformatted images were created and reviewed on an independent workstation. Maximum intensity projections, thoracic aorta. This CT examination was performed using dose optimization techniques as appropriate, variously including the following: *Automated exposure control *Adjustment of mA and/or kV according to patient size (this includes techniques or standardized protocols for targeted exams where dose is matched to indication/reason for exam; i.e. extremities or head) *Use of iterative reconstruction technique. Total DLP: 224 mGy centimeter. FINDINGS: Thoracic aorta is patent without intimal flap or focal stenosis. Ascending thoracic aorta diameter: 31 mm. Thoracic aortic arch diameter: 25 mm. Descending thoracic aorta diameter: 23 mm. No IV contrast extravasation. No hemomediastinum. No pneumomediastinum. Heart size is normal. No pericardial effusion. No hemopericardium. No acute airspace disease. No bronchiectasis. No honeycombing. No gross pulmonary nodules. Respiratory airways is patent. No calcified pleural plaques. No pleural effusion. No pneumothorax. No lymphadenopathy, mediastinum or perihilar. No acute rib fracture. Mild multilevel spondylosis without acute fracture or listhesis. Mixed plaques in the infrarenal abdominal aorta. Normal diameter of the suprarenal abdominal aorta. No discrete nodular lesions in the thyroid gland. CT/CT angio chest aorta IMPRESSION: No aneurysm or dissection, thoracic aorta. Fleischner guidelines were followed. Electronically signed by: Aaron Moya MD 03/15/2025 08:51 AM EDT
--- OUTSIDE RECORDS SUMMARY | 2025-03-15 08:21 | XMS_ITS | Clinical Summary ---
Author Organization [facility] Address [address] [place] [address] Phone Care Team Providers Care Stack Matcher Name Role Phone Nichole Petit MD Primary Care Provider + [phone] Allergies No known active allergies Medications cyclobenzaprine [...] Cervical Cancer Screening: P ap Smear 2002 HPV Vaccines (1 - 3-dose SCD M series) 2008 Depression Screening 05/31/2024 HIV Screening 08/31/2024 Hepatitis C Screening 08/31/2024 Social Influencers of Health Screening 08/31/2024 COVID-19 Vaccine (1 - 2023-2 5 season) 2025 Influenza Vaccine (#1) 2025 RSV Immunization Adult Patie nts (1 - 1-dose 75+ series) 2056 HIB Vaccines Aged Out No longer eligi [...] age to complete this topic Care Teams Stack Matcher Relationship Specialty Start Date End Date Nichole Petit MD [address] [place] [id number] PCP - General Internal Medicine 01/12/18
[2025-03-15] MEDS: iohexoL 350 MG/ML 100 ML INFUS..BTL IV (08:39)
== END 2025-03-15 08:13 | disposition home or self-care (01) ==
LOC: HO.CT 08:12
PROVIDERS: PCP Physician Assistant Medical; Visit Provider Physician Assistant Medical
DX: R07.9 Chest pain, unspecified (principal); R00.0 Tachycardia, unspecified; I49.3 Ventricular premature depolarization; I10 Essential (primary) hypertension
CPT/HCPCS: 71275; Q9967

== ENCOUNTER → 2025-03-15 08:23 | Outpatient (BNV) | payer OTHER, SELFPAY | PROVIDERS: PCP Physician Assistant Medical; Visit Provider Radiology Diagnostic Radiology | DX: R07.9 Chest pain, unspecified (principal) | CPT/HCPCS: 71275 ==

== ENCOUNTER 2025-03-21 12:52 | Outpatient (AMB) | payer OTHER, SELFPAY ==
--- NOTE | 2025-03-21 13:05 | MHC.OFFVIS ---
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 She was diagnosed with hypertension in September, although she had been monitoring her blood pressure since April, noting elevated levels. She was initially prescribed lisinopril followed by amlodipine, which has resulted in some improvement, though her blood pressure remains slightly elevated. In August, the patient experienced a hypertensive crisis with blood pressure reaching 216/100 mmHg, accompanied by chest pain, leading to an emergency room visit at [facility]. She reported that chest pain typically occurs after hypertensive episodes and persists for a day or two. During the August visit, she was also diagnosed with tachycardia and pancreatitis, although she disputes the pancreatitis diagnosis. The patient underwent various cardiac evaluations, including an echocardiogram, stress test, and Holter monitor, all of which were reassuring. Despite these findings, her blood pressure remains a concern, and adjustments to her medication regimen are being considered. The patient has a history of smoking and occasional marijuana use, which may contribute to her cardiovascular issues. [facility] Medical History (Updated 02/19/25 @ 15:48 by Tatyana Uribe PA-C) Cardiac arrhythmia Anxiety PVC (premature ventricular contraction) Family history of non-Hodgkin's lymphoma Intermittent chest pain Hypertension Mammogram declined (~10/02/24) History of pancreatitis Cervical cancer screening Elevated blood pressure reading Sinus tachycardia Serum lipase elevation Establishing care with new doctor, encounter for Family History (Updated 03/21/25 @ 13:12 by Russell Melo CNA) Father Brain aneurysm History of high blood pressure Mother History of high blood pressure Maternal Uncle Non Hodgkin's lymphoma Maternal Aunt Non Hodgkin's lymphoma Maternal Grandmother Heart problem Social History Housing: Apartment Alcohol intake: current Alcohol intake frequency: does not drink Patient Tobacco Use Status: Current everyday Tobacco user Tobacco use type: Cigarette Cigarettes Per Day: 10 service: No Current occupational status: employed Cognitive needs: No Hearing needs: No Vision needs: No Review of Systems Const Denies chills, Denies daytime sleepiness, Denies fatigue, Denies fever(s), Denies poor appetite, Denies snoring, Denies stops breathing during sleep, Denies weight gain and Denies weight loss Eyes Denies loss of vision Card Denies chest pain, Denies claudication, Denies leg edema, Denies lightheadedness, Denies palpitations, Denies dyspnea, Reports dyspnea on exertion and Denies orthopnea Resp Denies cough, Denies excessive phlegm production, Denies pain with cough, Denies dyspnea, Reports dyspnea on exertion, Denies snoring, Denies wheezing and Denies other GI Denies abdominal pain, Denies hematochezia, Denies change in bowel habits, Denies nausea and Denies vomiting Denies urinary frequency and Denies dysuria Musc Denies arthralgias and Denies muscle weakness Skin/Breast Denies nail changes and Denies rash Neuro Denies loss of vision and Denies memory loss Psych Denies depression, Reports difficulty concentrating, Denies auditory hallucinations and Denies memory loss Endo Denies fatigue and Denies palpitations Jason/Lymph Denies easy bruising Aller/Immun Denies wheezing Physical Exam Vital Signs: Last Vital Signs Pulse 82 03/21/25 13:08 BP 140/78 H 03/21/25 13:08 BMI result Body Mass Index 23.4 Const General: comfortable and no acute distress Orientation/consciousness: patient oriented x3 HEENT Other: Unremarkable Head: Yes normal to inspection Neck Neck: Yes normal visual inspection Chest Chest palpation & inspection: normal inspection of the chest Resp Auscultation: clear to auscultation bilaterally Cardio Palpation: normal PMI Heart sounds: S1 normal heart sound present, S2 normal heart sound present, no gallops, no murmurs and no rubs GI Palpation (GI): Soft to palpation Back/Spine/Pelvis Other: unremarkable Skin General skin exam: no rashes or lesions noted Neuro General: patient oriented x3 Extrem General: Yes normal to inspection Psych Mental Status: mental status grossly normal Assessment & Plan Assessment & Plan (1) Intermittent chest pain: Code(s): R07.9 - Chest pain, unspecified Category: Medical (2) Hypertension: Code(s): I10 - Essential (primary) hypertension Category: Medical (3) Sinus tachycardia: Code(s): R00.0 - Tachycardia, unspecified Category: Medical (4) Smoking: Code(s): F17.200 - Nicotine dependence, unspecified, uncomplicated Category: Social Hx Plan Cardiac studies reviewed. EKG with underlying sinus rhythm at 91/Min; no ischemic changes; normal NH and corrected QT. In the echocardiogram, LVEF is 60-65%. No significant valvular issues and otherwise unremarkable. Holter monitor shows underlying sinus rhythm with an average rate of 83/Min. Rare supraventricular ventricular ectopy. Shortness of breath and rapid heartbeat in patient diary correlated with sinus rhythm and sinus tachycardia. In the stress test, she is able to exercise for 10.1 METS on Gene protocol and reached 84% target heart rate with report of shortness of breath but no chest pain. Hypertensive blood pressure response. No EKG evidence of ischemia. In the chest CTA, no aortic aneurysm or dissection described. Overall, she has hypertension with meds being adjusted actively. Currently on amlodipine 2.5 mg daily and lisinopril 10 mg daily. She stated that she tried higher dose of amlodipine and became hypotensive. Hence we can increase the slightly to amlodipine 5 mg daily and she will try that for now. Lisinopril with the same dose. With regard to chest pains, no clear evidence of any obstructive CAD based on the ETT. Hopefully, it will resolve once the blood pressure is controlled better. If not, we can do a coronary CTA. We discussed about this today when she agrees. Otherwise, cut back and stopped smoking. She will monitor blood pressures and contact us or the PCP. Follow up in 6 months time. Coding Level of Care Code New Pt Level 4 (11473) Complex EM visit Add On G2211 Diagnoses Intermittent chest pain R07.9 Hypertension I10 Sinus tachycardia R00.0 Smoking F17.200
[2025-03-21 13:08] VITALS: BP 140/78; PULSE 82; BMI 23.4
--- OUTSIDE RECORDS SUMMARY | 2025-03-21 17:51 | XMS_ITS | Clinical Summary ---
Author Organization [facility] Address [address] [place] [address] Phone Care Team Providers Care Composition Weatherboard Applier Name Role Phone Nichole Petit MD Primary Care Provider + [phone] Allergies No known active allergies Medications cyclobenzaprine [...] age to complete this topic Care Teams Composition Weatherboard Applier Relationship Specialty Start Date End Date Nichole Petit MD [address] [place] [id number] PCP - General Internal Medicine 01/12/18
== END 2025-03-21 13:38 | disposition home or self-care (01) ==
LOC: HO.HCS 12:52
PROVIDERS: PCP Physician Assistant Medical; Visit Provider Internal Medicine
DX: R07.9 Chest pain, unspecified (principal); I10 Essential (primary) hypertension; R00.0 Tachycardia, unspecified; F17.200 Nicotine dependence, unspecified, uncomplicated
CPT/HCPCS: 99214

== ENCOUNTER → 2025-03-21 12:52 | Outpatient (BNVA) | payer OTHER, SELFPAY | PROVIDERS: PCP Physician Assistant Medical; Visit Provider Internal Medicine | DX: I10 Essential (primary) hypertension (principal); R07.9 Chest pain, unspecified; R00.0 Tachycardia, unspecified; F17.200 Nicotine dependence, unspecified, uncomplicated | CPT/HCPCS: 99212 ==

== ENCOUNTER 2025-05-07 15:13 | Outpatient (AMB) | payer OTHER, SELFPAY ==
[2025-05-07 15:04] VITALS: BP 143/79; PULSE 75; RESP 17; TEMP 36.7; O2SAT 99; BMI 23.7
--- NOTE | 2025-05-07 15:04 | A.OFFPC_ITS ---
Vital Signs 05/07/25 15:04 05/07/25 15:52 Height 5 ft 6 in Weight 147 lb BMI 23.7 BP 143/79 H 139/78 Blood Pressure Location Rt brachial Rt brachial Position Sitting Sitting Respiration 17 Pulse 75 76 Pulse Source Pulse Oximeter Palpation Temp 98.1 F Temp Source Temporal Artery Scan Pulse Oximetry (%) 99 Intake Visit Reasons: 3 month follow up Criminal Investigative Agent Required: No Accompanied by: Self / Same As Patient Allergies No Known Allergies Allergy (Verified 05/07/25 16:02) Medication List - Last Reconciled 05/07/25 by Tatyana Uribe PA-C amlodipine 2.5 mg PO DAILY losartan 25 mg PO DAILY Tobacco use date assessed: 02/19/25 Dental Screening Dental Screen Date: 02/19/25 HPI HPI Comments History of Present Illness Details History of Present Illness The patient is a 44-year-old female presenting for a blood pressure check. She followed up with a setter automatic spinning lathe in February who diagnosed her with sinus tachycardia and recommended continuing amlodipine 5 mg and lisinopril 10 mg for her elevated blood pressure. The patient reports her heart racing has been more under control with amlodipine, and she denies recent chest pain. An ETT showed no clear evidence of obstructive CAD. She has been experiencing a cough as a side effect of lisinopril, which wakes her up at night and feels severe enough to potentially break her ribs. She denies lip or ankle swelling. Previously, her amlodipine dose was increased to 10 mg but it was too high. Currently, she is taking two 2.5 mg tablets of amlodipine to achieve the 5 mg dose. The patient has not yet had a physical exam with this practice. Social History - Smoking: The patient was advised to cu t back and stop smoking by her setter automatic spinning lathe. [facility] Medical History (Updated 05/07/25 @ 16:05 by Tatyana Uribe PA-C) Preventative health care Adverse effect of angiotensin-converting enzyme inhibitor Cardiac arrhythmia Anxiety PVC (premature ventricular contraction) Family history of non-Hodgkin's lymphoma Intermittent chest pain Hypertension Mammogram declined (~10/02/24) History of pancreatitis Cervical cancer screening Elevated blood pressure reading Sinus tachycardia Serum lipase elevation Establishing care with new doctor, encounter for Family History Father Brain aneurysm History of high blood pressure Mother History of high blood pressure Maternal Uncle Non Hodgkin's lymphoma Maternal Aunt Non Hodgkin's lymphoma Maternal Grandmother Heart problem Social History Housing: Apartment Alcohol intake: current Alcohol intake frequency: does not drink Patient Tobacco Use Status: Current everyday Tobacco user Tobacco use type: Cigarette Cigarettes Per Day: 10 service: No Current occupational status: employed Cognitive needs: No Hearing needs: No Vision needs: No Questionnaire PHQ-9 Over the last 2 weeks, how often have you been bothered by any of the following problems? 1. Little interest or pleasure in doing things: not at all 2. Feeling down, depressed, or hopeless: not at all 3. Trouble falling or staying asleep, or sleeping too much: not at all 4. Feeling tired or having little energy: not at all 5. Poor appetite or overeating: not at all 6. Feeling bad about yourself - or that you are a failure or have let yourself or your family down: not at all 7. Trouble concentrating on things, such as reading the newspaper or watching television: not at all 8. Moving or speaking so slowly that other people could have noticed. Or the opposite - being so fidgety or restless that you have been moving around a lot more than usual: not at all 9. Thoughts that you would be better off or of hurting yourself in some way: not at all Total score: 0 Depression Screening Interpretation: Negative Depression Screening Done: Yes 52461 - PHQ-9 Billing: Yes Source: Developed by Drs. Samy Rashid, Guadalupe Rubalcava, Charlie Moses and colleagues, with an educational mamta from [employer]. Thrive Questionnaire Date Thrive assessed: 11/08/24 I am a: Patient What is your living situation today?: I have a steady place to live Within the past 12 months, did the food you bought not last and you didn't have the money to get more?: Never true Within the past 12 months, did you worry whether your food would run out before you got money to buy more?: Never true Do you have trouble paying for medicines?: No Do you have trouble getting transportation to medical appointments?: No Do you have trouble paying your heating and electricity bill?: No Do you have trouble taking care of your child, family member or friend?: No Do you have trouble with day-to-day activities such as bathing, preparing meals, shopping, managing finances, etc.?: No Are you currently unemployed and looking for a job?: No Are you interested in more education?: No Please select the resources that you would like help with: None THRIVE Score: 0 AUDIT C Alcohol Use Questionnaire (AUDIT-C) 1. How often do you have a drink containing alcohol?: Never 3. How often do you have six or more drinks on one occasion?: Never Total Score: 0 Score Reviewed/Action Taken: No DAYANNA-7 AMB Questionnaire DAYANNA-7 Date DAYANNA - 7 assessed: 11/08/24 Feeling nervous, anxious, or on edge: 0 = Not at all Not being able to stop or control worryin = Not at all Worrying too much about different things: 0 = Not at all Trouble relaxin = Not at all Being so restless that it is hard to sit still: 0 = Not at all Becoming easily annoyed or irritable: 0 = Not at all Feeling afraid as if something awful might happen: 0 = Not at all Total DAYANNA-7 score (0-4 normal; 5-9 mild; 10-14 moderate; 15-21 severe): 0 Source: Developed by Drs. Samy Rashid, Guadalupe Rubalcava, Charlie Moses and colleagues, with an educational mamta from [employer]. DAYANNA-7 Assessment Billing DAYANNA-7 Assessment Tool: DAYANNA-7 Assessment 61743 Review of Systems Narrative Review of Systems - Cardiovascular: Denies chest pain; reports history of heart racing, which is now better controlled. - Respiratory: Reports a cough that wakes her from sleep. - Allergic/Immunologic: Reports itching. - All pertinent negatives: Denies lip swelling and ankle swelling. Const All systems reviewed & are unremarkable except as noted in HPI and below Physical exam (Primary Care) Vital Signs: Last Vital Signs Temp 98.1 F 05/07/25 15:04 Pulse 76 05/07/25 15:52 Resp 17 05/07/25 15:04 BP 139/78 05/07/25 15:52 Pulse Ox 99 05/07/25 15:04 Care Plan Goal for BP management: <140/90 at GOAL will continue amlodipine 5 mg and will switch from lisinopril 10 mg due to adverse side effects/allergic reaction to losartan 25 mg BMI result Body Mass Index 23.7 Normal BMI Tobacco/Smoking Status: Tobacco use Status Tobacco use date assessed 02/19/25 05/07/25 15:06 Patient Tobacco Use Status Current everyday Tobacco 05/07/25 15:06 Tobacco use type Cigarette 05/07/25 15:06 PHQ-9: PHQ-9 Score PHQ-9: Total score 0 05/07/25 15:55 Depression Screening Interpretation: Negative Thrive Assessment: Date of Thrive Assessment Date Thrive assessed 11/08/24 05/07/25 15:06 Narrative Physical Exam Appearance: Alert. Oriented X3. No acute distress. Head: Normal external exam. Normocephalic. Atraumatic. Eyes: Pupils are equal, round, and reactive to light. Extraocular movements intact. Conjunctiva and sclera normal. Eyelids normal. Throat: Pharynx normal. Uvula midline. Moist mucous membranes. Neck: Normal inspection. Neck supple. Full range of motion. Cardiovascular: Heart rate slightly elevated at 130-140 bpm. Normal heart rhythm. Heart sound normal. No murmurs noted. Pulses normal throughout. Respiratory: No respiratory distress. Painless inspiration. Breath sounds normal. No wheezes/rales/rhonchi noted. No accessory muscle usage noted or decreased air movement noted. Back: Full range of motion noted. Skin: Skin warm and dry. Normal skin color. Normal skin turgor. No rashes/lesions/lacerations noted. Extremities: Extremities exhibit normal range of motion. Neuro: Oriented X 3. No motor deficit. No sensory deficit. Reflexes normal. Results Reviewed Results Reviewed: - Tests and Diagnostics: An exercise tolerance test (ETT) showed no clear evidence of obstructive coronary artery disease. Coding Level of Care Code Est Pt Level 4 (21789) Complex visit Add On G2211 Diagnoses Hypertension I10 Adverse effect of angiotensin-converting enzyme inhibitor T46.4X5A [facility] health care Z00.00 Additional Codes DAYANNA-7 Assessment Billing - DAYANNA-7 Assessment Tool: DAYANNA-7 Assessment 29984 ([id number]) PHQ-9 - 84526 - PHQ-9 Billing: Yes ([id number]) Assessment & Plan Assessment & Plan (1) Hypertension: Code(s): I10 - Essential (primary) hypertension Category: Medical Plan: Blood pressure was 140/75 mmHg, which is still elevated. She will continue amlodipine 5 mg daily. Lisinopril will be discontinued due to side effects. A new prescription for losartan 25 mg daily will be started. The patient was advised to monitor her blood pressure at home. (2) Adverse effect of angiotensin-converting enzyme inhibitor: Code(s): T46.4X5A - Adverse effect of zuibjpmylzk-qalvgfcwnw-ypnjud inhibitors, initial encounter Category: Medical Plan: The patient reports a persistent cough and itching, which wakes her from sleep, as a side effect of lisinopril. Lisinopril will be discontinued, and this will be noted as an allergy. She will be started on losartan 25 mg, an ARB, as an alternative. (3) Preventative health care: Code(s): Z00.00 - Encounter for general adult medical examination without abnormal findings Category: Medical Plan: The patient agreed to schedule her next appointment in three months as a full physical exam. Spiritual Advisor recommendations to stop smoking were reviewed. The patient should follow up sooner if any side effects from the new medication o ccur. Plan Plan Patient was informed and verbally consented to the use of an ambient scribe for clinic note documentation during this visit. 1. Hypertension Blood pressure was 140/75 mmHg, which is still elevated. She will continue amlodipine 5 mg daily. Lisinopril will be discontinued due to side effects. A new prescription for losartan 25 mg daily will be started. The patient was advised to monitor her blood pressure at home. 2. Adverse Effect Of Moshe Inhibitor The patient reports a persistent cough and itching, which wakes her from sleep, as a side effect of lisinopril. Lisinopril will be discontinued, and this will be noted as an allergy. She will be started on losartan 25 mg, an ARB, as an alternative. 3. Preventative Care The patient agreed to schedule her next appointment in three months as a full physical exam. Spiritual Advisor recommendations to stop smoking were reviewed. The patient should follow up sooner if any side effects from the new medication occur. Discussion Notes I discussed the patient's persistent hypertension and the side effects she is experiencing from lisinopril, specifically a severe cough. I explained that the cough is a known side effect of MOSHE inhibitors like lisinopril. We will discontinue lisinopril and start losartan 25 mg, which is in a different class of medications (ARBs) less likely to cause this side effect. I also updated her prescription for amlodipine to 5 mg tablets as she is currently taking two 2.5 mg tablets to achieve this dose. I advised her to let me know if any new side effects occur with losartan and not to wait for her next appointment. We agreed that her next appointment in three months will be a complete physical exam. Medications: New losartan 25 mg PO DAILY 90 tabs 1RF Changed From amlodipine 2.5 mg PO DAILY 90 tabs 3RF To amlodipine 5 mg PO DAILY 90 tabs 3RF Discontinued lisinopril Discontinued Reason: Doctor's Order 10 mg PO DAILY 90 tabs 1RF Patient Instructions: Patient Instructions - Stop taking lisinopril immediately. - Start taking losartan 25 mg once daily. - Continue taking amlodipine 5 mg daily. A new prescription for 5 mg tablets will be sent. - Monitor your blood pressure at home. - Contact the office if you experience any side effects from the new medication. - Schedule your next visit in three months, and it will be for a full physical exam. - Continue efforts to stop smoking.
[2025-05-07 15:52] VITALS: BP 139/78; PULSE 76
== END 2025-05-07 15:57 | disposition home or self-care (01) ==
LOC: HO.HMCSH 15:13
PROVIDERS: PCP Physician Assistant Medical; Visit Provider Physician Assistant Medical
DX: I10 Essential (primary) hypertension (principal); T46.4X5A Adverse effect of angiotensin-converting-enzyme inhibitors, initial encounter; Z00.00 Encounter for general adult medical examination without abnormal findings

== ENCOUNTER → 2025-05-07 15:13 | Outpatient (BNVA) | payer OTHER, SELFPAY | PROVIDERS: PCP Physician Assistant Medical; Visit Provider Physician Assistant Medical | DX: Z00.00 Encounter for general adult medical examination without abnormal findings (principal); I10 Essential (primary) hypertension; T46.4X5A Adverse effect of angiotensin-converting-enzyme inhibitors, initial encounter; F17.210 Nicotine dependence, cigarettes, uncomplicated; Z79.899 Other long term (current) drug therapy | CPT/HCPCS: 96127; 99212 ==